=== PATIENT | male | born 1970 | race Hispanic/Latino ===

== ENCOUNTER 2021-10-05 11:57 | Inpatient (IN) | payer BC ==
--- OUTSIDE RECORDS SUMMARY | 2021-10-05 12:00 | XMS REPORT | Continuity of Care Document ---
:[address] [facility] t Address [address] [place] [address] Dr. Roberts [address] [place] [id number] Care Team Providers Name Role Phone GARO FOSTER Attending Clinician Unavailable Problems This patient has no known problems. Allergies, Adverse Reactions, Alerts This patient has no known allergies or adverse reactions. Medications This patient has no known medications. Procedures This patient has no known procedures. Encounters Start End Encounter Admission Attending Care Care Encounter Source Date/Time Date/Time Type Type Clinicians Facility Department ID 2021-05-12 2021-05-12 Outpatient [facility] [id number] [place] 00:00:00 00:00:00 GARO [address] 2021-05-12 2021-05-12 Outpatient [facility] [id number] [place] 00:00:00 00:00:00 GARO [address] 2020-10-23 2020-10-23 Outpatient [facility] [id number] [place] 00:00:00 00:00:00 GARO [address] 2020-01-30 2020-01-30 Outpatient [facility] [id number] [place] 00:00:00 00:00:00 GARO [address] Results This patient has no known results.
[2021-10-05 13:13] LABS: Absolute Lymphocytes (CBC) 2.2 K/uL (0.7-4.9); Hematocrit 47.4 % (39.6-49.0); Lymphocytes % 22.6 % (15.3-44.8); MPV 8.3 fL (7.6-11.3); RBC Red Blood Cell Count 5.68 M/uL (4.33-5.43)
[2021-10-05 13:15] LABS: Protime INR 1.19
[2021-10-05 13:31] LABS: ALT/SGPT 41 U/L (12-78); AST/SGOT 24 U/L (15-37); Albumin 3.5 g/dL (3.4-5.0); Alkaline Phosphatase 80 U/L (45-117); BUN Blood Urea Nitrogen 17 mg/dL (7-18); Bicarbonate 25 mmol/L (21-32); Bilirubin Direct 0.2 mg/dL (0-0.2); Bilirubin Total 0.6 mg/dL (0.2-1.0); Glucose Level 213 mg/dL (74-106); Magnesium 2.2 mg/dL (1.8-2.4); NT PRO-BNP 2681 pg/mL (<125); Potassium 4.6 mmol/L (3.5-5.1); Sodium Level 138 mmol/L (136-145); Troponin (Emerg Dept Use Only) < 0.02 ng/mL (0.0-0.045)
--- NOTE | 2021-10-05 14:05 | RAD REPORT ---
EXAM DESCRIPTION: RAD - Chest Single View - 10/05/2021 1:57 pm CLINICAL HISTORY: DYSPNEA Chest pain. COMPARISON: Chest Pa And Lat (2 Views) dated 08/25/2021; CHEST PA AND LAT 2 VIEW dated 06/16/2012 FINDINGS: Portable technique limits examination quality. The lungs are grossly clear. The heart is upper limit of normal in size. No displaced fractures. IMPRESSION: No acute intrathoracic process suspected.
--- NOTE | 2021-10-05 14:30 | RAD REPORT ---
EXAM DESCRIPTION: CT - Chest For Pe Angio - 10/05/2021 2:15 pm CLINICAL HISTORY: Chest pain. DYSPNEA COMPARISON: No comparisons TECHNIQUE: CT angiogram of the pulmonary arteries was performed with MIP. All CT scans are performed using dose optimization technique as appropriate and may include automated exposure control or mA/KV adjustment according to patient size. FINDINGS: No evidence of pulmonary thromboembolism. No acute aortic finding demonstrated. Mild interstitial pulmonary edema suspected. Small bilateral pleural effusions slightly larger on the right. No concerning bony finding. IMPRESSION: No evidence of pulmonary thromboembolism. Mild CHF/ volume overload pattern is noted.
--- NOTE | 2021-10-05 14:36 | ER ---
Nurse's Notes [facility] Name: Edison Cummins III Age: 51 yrs Sex: Male : 1970 Arrival Date: 10/05/2021 Time: 12:07 Bed 24 Private MD: Diagnosis: Acute pulmonary edema;Dyspnea Presentation: 10/05 12:48 Chief complaint: Patient states: Shortness of breath that started 1 month ago and has ww progressively gotten worse. Had a stress test at Dr. Heath's office and heart rate is elevated. Complaining of swelling in lower extremity and unable to sleep due to laying down. Coronavirus screen: Client denies travel out of the [place] in the last 14 days. Ebola Screen: Patient negative for fever greater than or equal to 101.5 degrees Fahrenheit, and additional compatible Ebola Virus Disease symptoms Patient denies exposure to infectious person. Patient denies travel to an Ebola-affected area in the 21 days before illness onset. Initial Sepsis Screen: Does the patient meet any 2 criteria? No. Patient's initial sepsis screen is negative. Does the patient have a suspected source of infection? No. Patient's initial sepsis screen is negative. Risk Assessment: Do you want to hurt yourself or someone else? Patient reports no desire to harm self or others. Onset of symptoms was September 04, 2021. 12:48 Method Of Arrival: Ambulatory ww 12:48 Acuity: VANDANA 3 ww Triage Assessment: 12:51 General: Appears well groomed, well developed, well nourished, Behavior is calm, ww cooperative, appropriate for age. Pain: Denies pain. EENT: No deficits noted. Neuro: No deficits noted. Level of Consciousness is awake, alert, obeys commands, Oriented to person, place, time, situation, Appropriate for age Speech is normal. Cardiovascular: Reports palpitations, shortness of breath, Capillary refill < 3 seconds Edema is 2+ to left midcalf, left ankle, left foot, right midcalf, right ankle and right foot. Respiratory: Reports shortness of breath cough that is Onset: The symptoms/episode began/occurred gradually, the patient has moderate shortness of breath. GI: No deficits noted. Reports swelling in abd. : No deficits noted. No signs and/or symptoms were reported regarding the genitourinary system. Derm: Skin is intact, is healthy with good turgor, Skin is pink, warm \\T\\ dry. Musculoskeletal: No deficits noted. No signs and/or symptoms reported regarding the musculoskeletal system. Historical: - Allergies: 12:51 No Known Allergies; ww - Home Meds: 12:51 allopurinol 300 mg Oral tab 1 tab once daily [Active]; gabapentin 100 mg oral cap 1 cap ww twice a day [Active]; Janumet XR 50-500 mg oral TM24 2 tabs once daily [Active]; Jardiance 25 mg oral tab 1 tab once daily [Active]; Sparta-3 oral cap [Active]; omeprazole 40 mg Oral cpDR 1 cap once daily [Active]; - PMHx: 12:51 Diabetes mellitus; ww - PSHx: 12:51 None; ww - Immunization history:: Client reports receiving the 2nd dose of the Covid vaccine, Pneumococcal vaccine is not up to date, Flu vaccine is not up to date. - Social history:: Smoking status: Patient denies any tobacco usage or history of. Screenin:56 Abuse screen: Denies threats or abuse. Denies injuries from another. Nutritional ww screening: No deficits noted. Tuberculosis screening: No symptoms or risk factors identified. Fall Risk None identified. Assessment: 14:03 Reassessment: Patient appears in no apparent distress at this time. No changes from ww previously documented assessment. Patient and/or family updated on plan of care and expected duration. Pain level reassessed. Patient is alert, oriented x 3, equal unlabored respirations, skin warm/dry/pink. 15:11 Reassessment: Patient appears in no apparent distress at this time. No changes from ww previously documented assessment. Patient and/or family updated on plan of care and expected duration. Pain level reassessed. Patient is alert, oriented x 3, equal unlabored respirations, skin warm/dry/pink. answered all questions and concerns with patient and spouse.. Vital Signs: 12:48 BP 100 / 73; Pulse 120; Resp 22; Temp 96.7; Pulse Ox 99% on R/A; Weight 87.09 kg; ww Height 5 ft. 7 in. (170.18 cm); Pain 0/10; 14:04 BP 100 / 79; Pulse 119; Resp 26; Pulse Ox 95% on R/A; ww 15:11 BP 109 / 96; Pulse 126; Resp 25; Pulse Ox 95% on R/A; ww 12:48 Body Mass Index 30.07 (87.09 kg, 170.18 cm) ww ED Course: 12:07 Patient arrived in ED. am2 12:51 Triage completed. ww 12:51 Arm band placed on right ankle. ww 12:52 Radha Mckeon FNP-C is [facility]. kb 12:52 Luis Garcia MD is Attending Physician. kb 12:56 Patient has correct armband on for positive identification. Notified Nurse Practitioner ww and/or Physician [employer] Stock Clerk of vital signs. 12:56 Initial lab(s) drawn, by ED staff, sent to lab. COVID swab sent to lab. Inserted saline ww lock: 18 gauge in right antecubital area, using aseptic technique. 13:04 COVID-19 SARS RT PCR (Document "Date of Onset" if Symptomatic) Sent. iw 13:05 Marii Mckeon, RN is Primary Nurse. ww 13:57 XRAY Chest (1 view) In Process Unspecified. EDMS 14:15 CT Chest For PE Angio In Process Unspecified. EDMS 14:35 Souleymane Robertson DO is Hospitalizing Provider. kb Administered Medications: 14:59 Drug: Lasix (furosemide) 40 mg Route: IVP; Site: right antecubital; ww Outcome: 14:36 Decision to Hospitalize by Provider. kb 20:37 Patient left the ED. lp1 Signatures: Dispatcher [employer] EDMS Radha Mckeon FNP-C FNP-Kristine Knowles RN RN Blossom Mack RN RN 1 Geena Gonzales [facility] Marii Mckeon RN YESSI
--- NOTE | 2021-10-05 14:37 | EDPHYS ---
Physician Documentation [facility] Name: Edison Cummins III Age: 51 yrs Sex: Male : 1970 Arrival Date: 10/05/2021 Time: 12:07 Bed 24 Private MD: ED Physician Luis Garcia HPI: 10/05 13:10 This 51 yrs old Male presents to ER via Ambulatory with complaints of kb Breathing Difficulty. 13:10 The patient has shortness of breath at rest. Onset: The symptoms/episode began/occurred kb 1 month(s) ago. Duration: The symptoms are continuous. The patient's shortness of breath is aggravated by exertion, light activity. Associated signs and symptoms: The patient has no apparent associated signs or symptoms. Severity of symptoms: At their worst the symptoms were moderate in the emergency department the symptoms are unchanged. The patient has not experienced similar symptoms in the past. The patient has not recently seen a physician. 13:10 Pt reports shortness of breath and swelling that has been getting worse since it kb started during . Historical: - Allergies: 12:51 No Known Allergies; ww - Home Meds: 12:51 allopurinol 300 mg Oral tab 1 tab once daily [Active]; gabapentin 100 mg oral cap 1 cap ww twice a day [Active]; Janumet XR 50-500 mg oral TM24 2 tabs once daily [Active]; Jardiance 25 mg oral tab 1 tab once daily [Active]; [place]-3 oral cap [Active]; omeprazole 40 mg Oral cpDR 1 cap once daily [Active]; - PMHx: 12:51 Diabetes mellitus; ww - PSHx: 12:51 None; ww - Immunization history:: Client reports receiving the 2nd dose of the Covid vaccine, Pneumococcal vaccine is not up to date, Flu vaccine is not up to date. - Social history:: Smoking status: Patient denies any tobacco usage or history of. ROS: 13:08 Constitutional: Negative for fever, chills, and weight loss. kb 13:08 Cardiovascular: Positive for edema, Negative for chest pain, orthopnea, palpitations, paroxysmal nocturnal dyspnea. 13:08 Respiratory: Positive for dyspnea on exertion, shortness of breath, Negative for cough, hemoptysis, orthopnea, pleurisy, sputum production, wheezing. 13:08 All other systems are negative. Exam: 13:09 Constitutional: This is a well developed, well nourished patient who is awake, alert, kb and in no acute distress. Head/Face: Normocephalic, atraumatic. ENT: Moist Mucous membranes Abdomen/GI: Soft, non-tender. No distention Skin: Warm, dry with normal turgor. Normal color. MS/ Extremity: Pulses equal, no cyanosis. Neurovascular intact. Full, normal range of motion. Neuro: Awake and alert, GCS 15, oriented to person, place, time, and situation. Moves all extremities. Normal gait. Psych: Awake, alert, with orientation to person, place and time. Behavior, mood, and affect are within normal limits. 13:09 Cardiovascular: Rate: tachycardic, Rhythm: regular, Pulses: no pulse deficits are appreciated, Edema: 2+ edema to level of left ankle and right ankle. 13:09 Respiratory: mild respiratory distress is noted, Respirations: labored breathing, that is mild, Breath sounds: decreased breath sounds, that are mild, are located in both bases. Vital Signs: 12:48 BP 100 / 73; Pulse 120; Resp 22; Temp 96.7; Pulse Ox 99% on R/A; Weight 87.09 kg; ww Height 5 ft. 7 in. (170.18 cm); Pain 0/10; 14:04 BP 100 / 79; Pulse 119; Resp 26; Pulse Ox 95% on R/A; ww 15:11 BP 109 / 96; Pulse 126; Resp 25; Pulse Ox 95% on R/A; ww 12:48 Body Mass Index 30.07 (87.09 kg, 170.18 cm) ww MDM: 12:52 Patient medically screened. kb 13:08 Data reviewed: vital signs, nurses notes. Data interpreted: Pulse oximetry: on room air kb is 99 %. Interpretation: normal. 14:32 Counseling: I had a detailed discussion with the patient and/or guardian regarding: the kb historical points, exam findings, and any diagnostic results supporting the discharge/admit diagnosis, lab results, radiology results, the need for further work-up and treatment in the hospital. 10/05 12:52 Order name: Basic Metabolic Panel; Complete Time: 13:32 kb 10/05 12:52 Order name: CBC with Diff; Complete Time: 13:19 kb 10/05 12:52 Order name: LFT's; Complete Time: 13:32 kb 10/05 12:52 Order name: Magnesium; Complete Time: 13:32 kb 10/05 12:52 Order name: NT PRO-BNP; Complete Time: 13:32 kb 10/05 12:52 Order name: PT-INR; Complete Time: 13:19 kb 10/05 12:52 Order name: Troponin (emerg Dept Use Only); Complete Time: 13:32 kb 10/05 13:03 Order name: COVID-19 SARS RT PCR (Document "Date of Onset" if Symptomatic); Complete iw Time: 14:24 10/05 15:00 Order name: Hemoglobin A1c EDMS 10/05 15:00 Order name: Hemoglobin A1c EDMS 10/05 17:47 Order name: Glucose, Ancillary Testing EDMS 10/05 19:27 Order name: Creatine Phosphokinase EDMS 10/05 19:27 Order name: CKMB Creatine Kinase MB EDMS 10/05 12:52 Order name: XRAY Chest (1 view); Complete Time: 14:07 kb 10/05 12:52 Order name: EKG; Complete Time: 12:52 kb 10/05 12:52 Order name: Cardiac monitoring; Complete Time: 13:05 kb 10/05 12:52 Order name: EKG - Nurse/Tech; Complete Time: 13:43 kb 10/05 12:52 Order name: IV Saline Lock; Complete Time: 13:04 kb 10/05 12:52 Order name: Labs collected and sent; Complete Time: 13:04 kb 10/05 12:52 Order name: O2 Per Protocol; Complete Time: 13:05 kb 10/05 12:52 Order name: O2 Sat Monitoring; Complete Time: 13:05 kb 10/05 13:51 Order name: CT Chest For PE Angio; Complete Time: 14:30 kb 10/05 15:01 Order name: Chest Single View EDMS 10/05 15:01 Order name: Chest Single View EDMS 10/05 19:27 Order name: Troponin I EDMS 10/05 20:25 Order name: Glucose, Ancillary Testing EDMS Administered Medications: 14:59 Drug: Lasix (furosemide) 40 mg Route: IVP; Site: right antecubital; ww Disposition: 10/06 08:48 Co-signature as Attending Physician, Luis Garcia MD I agree with the assessment and rosalinda plan of care. Disposition Summary: 10/05/21 14:36 Hospitalization Ordered Hospitalization Status: Observation kb Provider: Souleymane Robertson Condition: Stable kb Problem: new kb Symptoms: are unchanged kb Bed/Room Type: Standard kb Location: Telemetry/MedSurg (Inpatient)(10/05/21 19:47) mw Room Assignment: 212(10/05/21 19:47) Diagnosis - Acute pulmonary edema kb - Dyspnea kb Forms: - Medication Reconciliation Form kb - SBAR form kb Signatures: Dispatcher [employer] EDMS Radha Mckeon FNP-Yasmin Cordova RN RN mw Anderson, Corey, MD MD cha Williams, Irene, RN YESSI Marii Mckeon RN RN ww Corrections: (The following items were deleted from the chart) 10/05 16:16 14:36 Telemetry/MedSurg (observation) kb iw 16:16 14:36 kb iw 19:47 16:16 [facility] ER HOLD iw mw 19:47 16:16 ERHOLD- iw mw
[2021-10-05] MEDS ORDERED: FUROSEMIDE 40 MG/4 ML VIAL ONE (14:45)
--- NOTE | 2021-10-05 15:06 | P.HP ---
Certification for Inpatient Patient admitted to: Observation With expected LOS: <2 Midnights Patient will require the following post-hospital care: None Practitioner: I am a practitioner with admitting privileges, knowledge of patient current condition, hospital course, and medical plan of care. Services: Services provided to patient in accordance with Admission requirements found in Title 42 Section 412.3 of the Code of Federal Regulations Patient History Date of Service: 10/05/21 Primary Care Provider: Dr. Royal; Cardiology-Dr. Randle Reason for admission: SOB History of Present Illness: 51-year-old male with history of diabetes, gout, GERD and diabetic neuropathy. Patient presented to the emergency room with increasing shortness of breath. Patient reports increasing shortness of breath over the past month. Shortness of breath worse with exertion. He has noted increasing edema to the lower extremities as well. He does drink water excessively. Patient seen by cardiology recently. He had a cardiac stress test done this morning. It is reported that his cardiac stress test showed ejection fraction of 19%. He came to the ER for further evaluation. In the ER patient evaluated. CT scan revealed CHF pattern. White count 9.6, hemoglobin 15. Platelet count 327. Sodium 138, potassium 4.6. Creatinine 1.24 with a GFR of 61. Troponin negative. BNP elevated. Patient given IV Lasix in the emergency room. Patient admitted for further evaluation and treatment. Home medications list reviewed: Yes - Past Medical/Surgical History Diabetic: Yes -: Diabetes mellitus type 2 [id number] -: GERD -: Gout -: Diabetic neuropathy Past Surgical History: Patient denies surgical history Psychosocial/ Personal History: Patient is . 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 - Family History Mother -: Heart disease, Hypertension, Other (see notes) (CHF, CABG x4 vessel) - Social History Smoking Status: Never smoker Alcohol use: No CD- Drugs: No Caffeine use: Yes Place of Residence: Home Review of Systems General: As per HPI Eyes: Unremarkable ENT: Unremarkable Respiratory: Shortness of Breath, SOB with Excertion, As per HPI Cardiovascular: Edema, As per HPI Gastrointestinal: Unremarkable Genitourinary: Unremarkable Musculoskeletal: Pedal edema, As per HPI Integumentary: Unremarkable Neurological: Unremarkable Lymphatics: Unremarkable Physical Examination - Studies Laboratory Data (last 24 hrs) 10/05/21 13:00: PT 13.7 H, INR 1.19 10/05/21 13:00: WBC 9.60, Hgb 15.3, Hct 47.4, Plt Count 327 10/05/21 13:00: Sodium 138, Potassium 4.6, BUN 17, Creatinine 1.24, Glucose 213 H, Magnesium 2.2, Total Bilirubin 0.6, AST 24, ALT 41, Alkaline Phosphatase 80 Assessment and Plan - Plan COVID: Negative Chest x-ray: COMPARISON: Chest Pa And Lat (2 Views) dated 08/25/2021; CHEST PA AND LAT 2 VIEW dated 06/16/2012 FINDINGS: Portable technique limits examination quality. The lungs are grossly clear. The heart is upper limit of normal in size. No displaced fractures. IMPRESSION: No acute intrathoracic process suspected. CT scan chest: FINDINGS: No evidence of pulmonary thromboembolism. No acute aortic finding demonstrated. Mild interstitial pulmonary edema suspected. Small bilateral pleural effusions slightly larger on the right. No concerning bony finding. IMPRESSION: No evidence of pulmonary thromboembolism. Mild CHF/ volume overload pattern is noted. Physical Exam: GENERAL: The patient is a well-developed, well-nourished, in no apparent distress. Alert and oriented x3. VITAL SIGNS: Reviewed HEENT: Head is normocephalic and atraumatic. Extraocular muscles are intact. Pupils are equal, round, and reactive to light and accommodation. Nares appeared normal. Mouth is well hydrated and without lesions. Mucous membranes are moist. NECK: Supple. No carotid bruits. No lymphadenopathy or thyromegaly. LUNGS: Decreased bilateral. Currently on room air. HEART: Regular rate and rhythm, no appreciable gallops, rubs, murmurs or extra heart sounds ABDOMEN: Soft, nontender, and nondistended. Positive bowel sounds. No hepatosplenomegaly was noted. EXTREMITIES: Pitting edema to the lower extremities bilateral NEUROLOGIC: The patient is oriented to person, place and time. Strength and sensation are grossly intact. Face is symmetric. SKIN: 1-2+ pitting edema to the lower extremities bilateral Impression: Shortness of breath, edema to the lower extremities secondary to acute on chronic systolic CHF Hypertension Diabetes mellitus type 2 GERD Diabetic neuropathy Gout Plan: Shortness of breath, edema to the lower extremities secondary to acute on chronic systolic CHF: Patient will be admitted for further evaluation and treatment. Patient had cardiac stress test at cardiology office today. It was noted that his ejection fraction was 19%. Patient had abnormal stress test. We will start IV Lasix 40 mg 3 times a day. Will provide carvedilol. Consider Entresto at discharge. Will obtain echocardiogram to further evaluate. Await further recommendations from cardiology. Recheck chest x-ray tomorrow. Tyson n sats above 93%. Monitor strict input output. Monitor daily weight. Teach on 1506/day fluid restriction and low-salt diet. Patient may require further evaluation including cardiac stress test and/or LifeVest. Await recommendations from cardiology. Hypertension: Mild tachycardia noted. Will start carvedilol. Diabetes mellitus type 2: Hold Metformin, Jardiance. Continue Accu-Cheks and sliding scale. Will check hemoglobin A1c. GERD: Continue Protonix 40 mg daily Diabetic neuropathy: Hold gabapentin. Gout: Continue allopurinol 300 mg daily Code Status: Full Code DVT prophylaxis: Lovenox Advanced Care Planning-30 minutes: Home at discharge Discharge Plan: Home Plan to discharge in: 48 Hours - Advance Directives Does patient have a Living Will: No Does patient have a Durable POA for Healthcare: No - Code Status/Comfort Care Code Status Assessed: Yes (Patient is full code) Time Spent Managing Pts Care (In Minutes): 55
[2021-10-05 16:07] VITALS: BMI 31.1
[2021-10-05] MEDS ORDERED: ACETAMINOPHEN 500 MG TAB PO PRN (17:23)
[2021-10-05] MEDS ORDERED: ONDANSETRON 4 MG/2 ML VIAL IV PRN (17:23)
[2021-10-05] MEDS: INSULIN -REGULAR HUMAN 50 UNIT/0.5 ML ML SQ SCH ×2 (17:35→20:29)
[2021-10-05] MEDS ORDERED: carvediloL 6.25 MG TAB ONE (17:39)
[2021-10-05] MEDS: carvediloL 3.125 MG TAB PO SCH (17:56)
[2021-10-05] MEDS: ENOXAPARIN 40 MG/0.4 ML SQ SCH (17:57)
[2021-10-05] MEDS ORDERED: ENOXAPARIN 40 MG/0.4 ML SQ ONE (18:00)
[2021-10-05] MEDS ORDERED: FUROSEMIDE 40 MG/4 ML VIAL IV SCH (18:00)
[2021-10-05 19:27] LABS: CKMB Creatine Kinase MB 1.5 ng/mL (1.0-3.6); Creatine Phosphokinase 115 U/L (39-308); Troponin I < 0.02 ng/mL (0.0-0.045)
[2021-10-06] MEDS ORDERED: FUROSEMIDE 40 MG/4 ML VIAL IV SCH (01:00)
[2021-10-06 01:23] LABS: CKMB Creatine Kinase MB 1.4 ng/mL (1.0-3.6); Creatine Phosphokinase 103 U/L (39-308); Troponin I < 0.02 ng/mL (0.0-0.045)
[2021-10-06] MEDS: carvediloL 3.125 MG TAB PO SCH ×3 (05:21→17:12)
--- NOTE | 2021-10-06 06:04 | P.PN ---
Subjective Date of Service: 10/06/21 Primary Care Provider: Dr. Royal; Cardiology-Dr. Randle Chief Complaint: SOB Subjective: Improving (Patient was able to diurese up to 2 L last night) Physical Examination - Vital Signs Temperature: 97.9 F Blood Pressure: 108/73 Pulse: 108 Respirations: 18 Pulse Ox (%): 94 - Studies Laboratory Data (last 24 hrs) 10/05/21 13:00: PT 13.7 H, INR 1.19 10/05/21 13:00: WBC 9.60, Hgb 15.3, Hct 47.4, Plt Count 327 10/05/21 13:00: Sodium 138, Potassium 4.6, BUN 17, Creatinine 1.24, Glucose 213 H, Magnesium 2.2, Total Bilirubin 0.6, AST 24, ALT 41, Alkaline Phosphatase 80 Assessment & Plan Discharge Plan: Home Plan to discharge in: 48 Hours Physician Review Additional Text: COVID: Negative Chest x-ray: COMPARISON: Chest Pa And Lat (2 Views) dated 08/25/2021; CHEST PA AND LAT 2 VIEW dated 06/16/2012 FINDINGS: Portable technique limits examination quality. The lungs are grossly clear. The heart is upper limit of normal in size. No displaced fractures. IMPRESSION: No acute intrathoracic process suspected. CT scan chest: FINDINGS: No evidence of pulmonary thromboembolism. No acute aortic finding demonstrated. Mild interstitial pulmonary edema suspected. Small bilateral pleural effusions slightly larger on the right. No concerning bony finding. IMPRESSION: No evidence of pulmonary thromboembolism. Mild CHF/ volume overload pattern is noted. Follow up CXR 10/06/2021: COMPARISON: October 05, 2021 FINDINGS: Small bilateral pleural effusions. Mild bibasilar atelectasis. Upper lobes appear clear. Heart is borderline enlarged Physical Exam: GENERAL: The patient is a well-developed, well-nourished, in no apparent distress. Alert and oriented x3. VITAL SIGNS: Reviewed HEENT: Neck supple LUNGS: Better air movement bilateral l. Currently on room air. HEART: Regular rate and rhythm, no appreciable gallops, rubs, murmurs or extra heart sounds ABDOMEN: Soft, nontender, and nondistended. Positive bowel sounds. No hepatosplenomegaly was noted. EXTREMITIES: Edema to the lower extremities improved l NEUROLOGIC: The patient is oriented to person, place and time. Strength and sensation are grossly intact. Face is symmetric. SKIN: Edema to the lower extremity improved Impression: Shortness of breath, edema to the lower extremities secondary to acute on chronic systolic CHF Hypertension Diabetes mellitus type 2 GERD Diabetic neuropathy Gout Plan: Shortness of breath, edema to the lower extremities secondary to acute on chronic systolic CHF: Patient improved. Continue with Lasix but will change to 40 mg 1 pill twice daily. Continue 1500 cc/day fluid restriction. Continue aspirin, carvedilol, lisinopril. Spoke with cardiology. Cardiology plans for heart catheterization tomorrow to further evaluate his condition. Echocardiogram to be obtained. 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 Hypertension: Continue carvedilol and lisinopril. Parameters in place. Diabetes mellitus type 2: Continue to hold Metformin, Jardiance. Continue Accu- Cheks and sliding scale. Will check hemoglobin A1c. GERD: Continue Protonix 40 mg daily Diabetic neuropathy: Continue to hold gabapentin. Gout: Continue allopurinol 300 mg daily Code Status: Full Code DVT prophylaxis: Lovenox Advanced Care Planning-30 minutes: Discharge home likely in 1 to 2 days. Time Spent Managing Pts Care (In Minutes): 55
[2021-10-06 06:13] LABS: Magnesium 2.4 mg/dL (1.8-2.4); Potassium 4.6 mmol/L (3.5-5.1)
[2021-10-06 06:19] LABS: Thyroid Stimulating Hormone 2.18 uIU/mL (0.360-3.740)
[2021-10-06] MEDS: INSULIN -REGULAR HUMAN 50 UNIT/0.5 ML ML SQ SCH ×4 (07:30→22:06)
--- NOTE | 2021-10-06 08:11 | RAD REPORT ---
EXAM DESCRIPTION: Tiffany Single View10/06/2021 6:36 am CLINICAL HISTORY: Shortness of breath COMPARISON: October 05, 2021 FINDINGS: Small bilateral pleural effusions. Mild bibasilar atelectasis. Upper lobes appear clear. Heart is borderline enlarged
[2021-10-06] MEDS: VITAMIN D 1000 UNIT TAB PO SCH (08:32)
[2021-10-06] MEDS: allopurinoL 300 MG TAB PO SCH (08:32)
[2021-10-06] MEDS: ASPIRIN EC 81 MG TAB PO SCH (08:32)
[2021-10-06] MEDS: PANTOPRAZOLE 40MG TABLET PO SCH (08:33)
[2021-10-06] MEDS: FUROSEMIDE 40 MG/4 ML VIAL IV SCH ×2 (08:33→22:04)
[2021-10-06] MEDS: ENOXAPARIN 40 MG/0.4 ML SQ SCH (08:34)
[2021-10-06] MEDS: lisinopriL 5 MG TAB PO SCH (08:35)
--- NOTE | 2021-10-06 11:18 | EKG ---
Test Date: 2021-10-05 Test Time: 13:07:11 Preparation Supervisor Freezing: JESSICA, MEASUREMENT RESULTS: Intervals: Rate: 125 WV: 144 QRSD: 96 QT: 336 QTc: 484 [place]: P: 33 WV: 144 QRS: -50 T: 67 INTERPRETIVE STATEMENTS: Sinus tachycardia Left anterior fascicular block Septal infarct, age undetermined Possible Lateral infarct, age undetermined Abnormal ECG Compared to ECG 06/16/2012 10:41:12 Left anterior fascicular block now present Myocardial infarct finding now present Sinus rhythm no longer present Electronically Signed On 10-06-21 11:14:21 WIND UP OPERATOR by Lev Randle
--- NOTE | 2021-10-06 11:24 | ECHO ---
HEIGHT: 5 ft 7 in WEIGHT: 198 lb 12.8 oz DATE OF STUDY: 10/06/[address]: Souleymane Robertson DO 2-DIMENSIONAL: YES M.MODE: YES DOPPLER: YES COLOR FLOW: YES TDS: PORTABLE: DEFINITY: BUBBLE STUDY: DIAGNOSIS: CONGESTIVE HEART FAILURE CARDIAC HISTORY: CATHERIZATION: SURGERY: PROSTHETIC VALVE: PACEMAKER: MEASUREMENTS (cm) DIASTOLIC (NORMALS) SYSTOLIC (NORMALS) IVSd 1.1 (0.6-1.2) LA Diam 4.0 (1.9-4.0) LVEF 22% LVIDd 5.9 (3.5-5.7) LVIDs 5.3 (2.0-3.5) %FS 10% LVPWd 1.1 (0.6-1.2) Ao Diam 3.2 (2.0-3.7) 2 DIMENSIONAL ASSESSMENT: RIGHT ATRIUM: NORMAL LEFT ATRIUM: NORMAL RIGHT VENTRICLE: NORMAL LEFT VENTRICLE: DILATED TRICUSPID VALVE: NORMAL MITRAL VALVE: NORMAL PULMONIC VALVE: NORMAL AORTIC VALVE: NORMAL PERICARDIAL EFFUSION: NONE AORTIC ROOT: NORMAL LEFT VENTRICULAR WALL MOTION: SEVEREGLOBAL HYPOKINESIS DOPPLER/COLOR FLOW: MILD TRICUSPID REGUGITATION COMMENTS: MILD TRICUSPID REGURGITAITON. SEVERE GLOBAL HYPOKINESIS. EJECTION FRACTION 22%. DILATED LEFT VENTRICLE. TECHNOLOGIST: TALON GARZA
--- NOTE | 2021-10-06 19:41 | PN ---
Date of Progress Note: 10/06/2021 Mr. Cummins was admitted with acute systolic congestive heart failure, severely reduced ejection fract ion of 19% and abnormal stress test. Overnight, he diuresed significantly. He is feeling better. H e is able to lay flat. He is on lisinopril, carvedilol, IV Lasix. He is on aspirin. We will plan a heart catheterization on 10/07/2021 to define his coronary anatomy. Continue present regimen for no w. The patient understands the risk and the benefits of the procedure and he agreed to proceed. NEYDA/KOJO Voice ID: [id number] Report ID: [id number]
[2021-10-06] MEDS: ATORVASTATIN 10 MG TAB PO SCH (22:06)
[2021-10-07 04:39] LABS: Magnesium 2.3 mg/dL (1.8-2.4)
[2021-10-07] MEDS: carvediloL 3.125 MG TAB PO SCH (05:49)
--- NOTE | 2021-10-07 06:10 | P.PN ---
Subjective Date of Service: 10/07/21 Primary Care Provider: Dr. Royal; Cardiology-Dr. Randle Chief Complaint: SOB Subjective: Other (Patient went to heart cath.) Physical Examination - Vital Signs Temperature: 97 F Blood Pressure: 95/70 Pulse: 70 Respirations: 16 Pulse Ox (%): 94 - Studies Laboratory Data (last 24 hrs) 10/06/21 05:28: Sodium 140, Potassium 4.6, BUN 19 H, Creatinine 1.10, Glucose 153 H, Magnesium 2.4, Triglycerides 121, Cholesterol 138, HDL Cholesterol 29 L, Cholesterol/HDL Ratio 4.76 Assessment & Plan Discharge Plan: Home Plan to discharge in: 24 Hours Physician Review Additional Text: COVID: Negative Chest x-ray: COMPARISON: Chest Pa And Lat (2 Views) dated 08/25/2021; CHEST PA AND LAT 2 VIEW dated 06/16/2012 FINDINGS: Portable technique limits examination quality. The lungs are grossly clear. The heart is upper limit of normal in size. No displaced fractures. IMPRESSION: No acute intrathoracic process suspected. CT scan chest: FINDINGS: No evidence of pulmonary thromboembolism. No acute aortic finding demonstrated. Mild interstitial pulmonary edema suspected. Small bilateral pleural effusions slightly larger on the right. No concerning bony finding. IMPRESSION: No evidence of pulmonary thromboembolism. Mild CHF/ volume overload pattern is noted. Follow up CXR 10/06/2021: COMPARISON: October 05, 2021 FINDINGS: Small bilateral pleural effusions. Mild bibasilar atelectasis. Upper lobes appear clear. Heart is borderline enlarged ECHO: MEASUREMENTS (cm) DIASTOLIC (NORMALS) SYSTOLIC (NORMALS) IVSd 1.1 (0.6-1.2) LA Diam 4.0 (1.9-4.0) LVEF 22% LVIDd 5.9 (3.5-5.7) LVIDs 5.3 (2.0-3.5) %FS 10% LVPWd 1.1 (0.6-1.2) Ao Diam 3.2 (2.0-3.7) 2 DIMENSIONAL ASSESSMENT: RIGHT ATRIUM: NORMAL LEFT ATRIUM: NORMAL RIGHT VENTRICLE: NORMAL LEFT VENTRICLE: DILATED TRICUSPID VALVE: NORMAL MITRAL VALVE: NORMAL PULMONIC VALVE: NORMAL AORTIC VALVE: NORMAL PERICARDIAL EFFUSION: NONE AORTIC ROOT: NORMAL LEFT VENTRICULAR WALL MOTION: SEVEREGLOBAL HYPOKINESIS DOPPLER/COLOR FLOW: MILD TRICUSPID REGUGITATION COMMENTS: MILD TRICUSPID REGURGITAITON. SEVERE GLOBAL HYPOKINESIS. EJECTION FRACTION 22%. DILATED LEFT VENTRICLE. Heart cath: Date of Procedure: 10/07/2021 Surgeon: Lev Randle MD Database Engineer: Hien Cummins. After the Angio-Seal, the patient will be at bedrest for 2 hours. He will go home later on tonight. The case was discussed with Dr. Robertson. He should go home on aspirin, Plavix, statin, carvedilol 6.25 mg b.i.d., lisinopril low-dose, Lasix low-dose, and I will see him in the office. Hopefully, followup echocardiogram will be done in the next month to see if his ejection fraction improved. His EF yesterday was 22%. I believe his ejection fraction does not improve in 90 days, then we will proceed with a defibrillator. Admitted to Dr. Robertson from 10/05/2021 with non-STEMI, abnormal stress test, congestive heart failure. Brought to the cathode ray tube assembler today as an inpatient. Procedures Performed: In the cathode ray tube assembler, he underwent left heart catheterization, selective coronary arteriogram, primary stent of the distal circumflex. Indication: Coronary artery disease, CHF, positive stress test, non-STEMI. Mr. Cummins is 51, was admitted with the above problem on 10/05/2021. Procedure In Detail: His LAD was normal. Left main was normal. His RCA was normal, it was codominant. Circumflex was very large with a 70% and sequential 99% distal circumflex. We decided to intervene. An XB3.5 side-hole guide was used, 6-Urdu as a guide. We used a Chester wire 0.014 extra length to cross the lesion successfully. He had 2 stents were placed. Both of them were 2.5 x 16, overlapped in the distal circumflex with excellent result and 0% residual. There were no complications. Blood Loss: 5 mL. Anesthesia: Total conscious sedation was 45 minutes. Physical Exam: GENERAL: The patient is a well-developed, well-nourished, in no apparent distress. Alert and oriented x3. VITAL SIGNS: Reviewed HEENT: Neck supple LUNGS: Better air movement bilateral l. Currently on room air. HEART: Regular rate and rhythm, no appreciable gallops, rubs, murmurs or extra heart sounds ABDOMEN: Soft, nontender, and nondistended. Positive bowel sounds. No hepatosplenomegaly was noted. EXTREMITIES: Edema to the lower extremities improved l NEUROLOGIC: The patient is oriented to person, place and time. Strength and sensation are grossly intact. Face is symmetric. SKIN: Edema to the lower extremity improved Impression: Shortness of breath, edema to the lower extremities secondary to acute on chronic systolic CHF with EF of 22% status post heart catheterization showing stenosis to the circumflex status post 2 successful stents placed in the distal circumflex Hypertension Diabetes mellitus type 2 GERD Diabetic neuropathy Gout Plan: Shortness of breath, edema to the lower extremities secondary to acute on chr onic systolic CHF with EF of 22% status post heart catheterization showing stenosis to the circumflex status post 2 successful stents placed in the distal circumflex: Spoke with cardiology at length. Patient had stents placed to the circumflex. LAD and RCA appeared normal. Patient has done well with diuresis. Patient can be discharged later today after 4 PM as recommended by cardiology. At discharge patient will continue with the 1500 cc/day fluid restriction and low-salt diet. Patient will continue with Lasix 40 mg 1 pill twice daily. Patient will also continue with aspirin 81 mg daily, Plavix 75 mg daily, Lipitor 10 mg daily, carvedilol 6.25 mg 1 pill twice daily, and lisinopril 2.5 mg daily. Patient will need follow-up with cardiology within 1 week. Education on CHF and CAD provided. Hypertension: Carvedilol increased. Continue with carvedilol and lisinopril at discharge. Diabetes mellitus type 2: Continue to hold Metformin for at least 48 hours after heart catheterization. Patient will need to continue with his home medications at discharge. Hemoglobin A1c 8.3. Continue to monitor and adjust medication. Recommend to recheck labBMP to monitor renal function on his current medications. GERD: Continue Protonix 40 mg daily Diabetic neuropathy: Continue to hold gabapentin. Continue at discharge Gout: Continue allopurinol 300 mg daily Code Status: Full Code DVT prophylaxis: Lovenox Advanced Care Planning-30 minutes: Discharge home likely in 1 to 2 days. Time Spent Managing Pts Care (In Minutes): 55
[2021-10-07] MEDS: ASPIRIN EC 81 MG TAB PO SCH (06:55)
[2021-10-07] MEDS ORDERED: HEPA 1000U/500MLS 1,000 UNIT/500 ML BAG IV ONE (06:55)
[2021-10-07] MEDS ORDERED: LIDOCAINE 1% 20 ML MDV ONE (06:55)
[2021-10-07] MEDS ORDERED: MIDAZOLAM HCL 2 MG/2 ML INJ ONE ×2 (07:13→07:35)
[2021-10-07] MEDS ORDERED: FENTANYL CITR 100 MCG/2 ML ONE (07:14)
[2021-10-07] MEDS ORDERED: ATROPINE SULF 1 MG/10 ML SYR IV ONE (07:14)
[2021-10-07] MEDS ORDERED: NA CHLORIDE 0.9% 500 ML ONE (07:14)
[2021-10-07] MEDS ORDERED: NA CHLORIDE 0.9% 50 ML ONE (07:15)
[2021-10-07] MEDS: PANTOPRAZOLE 40MG TABLET PO SCH (07:30)
[2021-10-07] MEDS: INSULIN -REGULAR HUMAN 50 UNIT/0.5 ML ML SQ SCH ×4 (07:30→22:03)
[2021-10-07] MEDS ORDERED: PRASUGREL (EFFIENT) 10 MG TAB ONE (08:03)
[2021-10-07] MEDS: FUROSEMIDE 40 MG/4 ML VIAL IV SCH ×3 (08:11→22:02)
[2021-10-07] MEDS: allopurinoL 300 MG TAB PO SCH (08:12)
[2021-10-07] MEDS: lisinopriL 5 MG TAB PO SCH (08:12)
[2021-10-07] MEDS: ENOXAPARIN 40 MG/0.4 ML SQ SCH (08:12)
[2021-10-07] MEDS: VITAMIN D 1000 UNIT TAB PO SCH (08:12)
--- NOTE | 2021-10-07 09:27 | OP ---
Date of Procedure: 10/07/2021 Surgeon: Lev Randle MD Labor Training Manager: Hienmario Cummins. After the Angio-Seal, the patient will be at bedrest for 2 hours. He will go home later on tonight. The case was discussed with Dr. Robertson. He should go home on aspirin, Plavix, statin, carvedilol 6. 25 mg b.i.d., lisinopril low-dose, Lasix low-dose, and I will see him in the office. Hopefully, foll owup echocardiogram will be done in the next month to see if his ejection fraction improved. His EF yesterday was 22%. I believe his ejection fraction does not improve in 90 days, then we will proceed with a defibrillator. Admitted to Dr. Robertson from 10/05/2021 with non-STEMI, abnormal stress test, congestive heart failure . Brought to the manager cardiac cath today as an inpatient. Procedures Performed: In the manager cardiac cath, he underwent left heart catheterization, selective coronary a rteriogram, primary stent of the distal circumflex. Indication: Coronary artery disease, CHF, positive stress test, non-STEMI. Mr. Cummins is 51, was ad mitted with the above problem on 10/05/2021. Procedure In Detail: On 10/07/2021, he was brought to the manager cardiac cath, prepped and draped in the routin e sterile fashion. Given Versed and fentanyl for sedation. A 6-Greek sheath introduced in the [facility] common femoral artery successfully. Angiography there was normal. Angio-Seal was used to close th e case. A 6-Greek sheath was introduced. 6-Greek catheters were introduced to cannulate the left main and right main. His LAD was normal. Left main was normal. His RCA was normal, it was codomina nt. Circumflex was very large with a 70% and sequential 99% distal circumflex. We decided to interv bety. An XB3.5 side-hole guide was used, 6-Greek as a guide. We used a Sullivan wire 0.014 extra janice th to cross the lesion successfully. He had 2 stents were placed. Both of them were 2.5 x 16, overl apped in the distal circumflex with excellent result and 0% residual. There were no complications. Blood Loss: 5 mL. Anesthesia: Total conscious sedation was 45 minutes. The patient received Angiomax during the procedure, aspirin, and Effient 60 mg. Postoperative Diagnosis: Successful primary stent of the distal circumflex. We will continue medica l therapy. NEYDA/KOJO Voice ID: [id number] Report ID: [id number]
[2021-10-07] MEDS ORDERED: ALPRAZOLAM 0.5 MG TABLET PO PRN (10:46)
--- NOTE | 2021-10-07 10:51 | CON ---
Date of Consultation: 10/05/[address] Robertson on 10/05/2021. I saw the patient on 10/05/2021. Reason For Consultation: Congestive heart failure and abnormal stress test. History Of Present Illness: Mr. Cummins is 51. History of diabetes, gastroesophageal reflux disease, gout, and neuropathy. Had been seen in the office for shortness of breath. Stress test showed ejec tion fraction of 19% with significant perfusion defect in multiple areas. He was supposed to come se e me after the stress test; however, he got admitted to the hospital with congestive heart failure, P ND, orthopnea, pedal edema. No palpitation. No syncope. No chest pain, nausea, vomiting, or diapho resis. He denied any fever or chills. Past Medical History: As stated above. Allergies: NONE. Review of Systems: Negative. Social History: Negative. Family History: Positive for diabetes and congestive heart failure. Medications: At home include allopurinol, Neurontin, Janumet, and Prilosec. Physical Examination: General: When I saw him; he had significant PND, orthopnea, shortness of breath. Vital Signs: Negative. He was afebrile. He was in sinus rhythm. HEENT: Negative. Neck: Supple without any bruit, lymphadenopathy, JVD. Chest: Reveals rales both the bases. Cardiac: Revealed tachycardia with S3 gallops. Abdomen: Benign. Extremities: Revealed trace edema. Diagnostic Data: Chest x-ray showed no acute process; however, the CT showed interstitial edema. EK G was nonspecific. The rest of the blood work was unremarkable. Impression And Plan: 1.Acute systolic congestive heart failure. 2.Abnormal stress test. 3.Diabetes. 4.Gout. 5.Neuropathy. 6.Gastroesophageal reflux disease. Mr. Cummins needs to be diuresed with IV Lasix, needs to be start ed on carvedilol and lisinopril. We will watch his electrolytes and creatinine. We will plan for le ft heart catheterization once he is able to lay flat. The case was discussed with Dr. Robertson. The p atient understands the risk and the benefits of the procedure and he agrees to proceed. NB/MODL Voice ID: [id number] Report ID: [id number]
--- NOTE | 2021-10-07 10:59 | P.DS ---
Admission Date: 10/06/21 Discharge Date: 10/08/21 Primary Care Provider: Dr. Royal; Cardiology-Dr. Randle Disposition: ROUTINE DISCHARGE Discharge Condition: GOOD Reason for Admission: SOB Consultations: Cardiology-Dr. Randle Procedures: COVID: Negative Chest x-ray: COMPARISON: Chest Pa And Lat (2 Views) dated 08/25/2021; CHEST PA AND LAT 2 VIEW dated 06/16/2012 FINDINGS: Portable technique limits examination quality. The lungs are grossly clear. The heart is upper limit of normal in size. No displaced fractures. IMPRESSION: No acute intrathoracic process suspected. CT scan chest: FINDINGS: No evidence of pulmonary thromboembolism. No acute aortic finding demonstrated. Mild interstitial pulmonary edema suspected. Small bilateral pleural effusions slightly larger on the right. No concerning bony finding. IMPRESSION: No evidence of pulmonary thromboembolism. Mild CHF/ volume overload pattern is noted. Follow up CXR 10/06/2021: COMPARISON: October 05, 2021 FINDINGS: Small bilateral pleural effusions. Mild bibasilar atelectasis. Upper lobes appear clear. Heart is borderline enlarged ECHO: MEASUREMENTS (cm) DIASTOLIC (NORMALS) SYSTOLIC (NORMALS) IVSd 1.1 (0.6-1.2) LA Diam 4.0 (1.9-4.0) LVEF 22% LVIDd 5.9 (3.5-5.7) LVIDs 5.3 (2.0-3.5) %FS 10% LVPWd 1.1 (0.6-1.2) Ao Diam 3.2 (2.0-3.7) 2 DIMENSIONAL ASSESSMENT: RIGHT ATRIUM: NORMAL LEFT ATRIUM: NORMAL RIGHT VENTRICLE: NORMAL LEFT VENTRICLE: DILATED TRICUSPID VALVE: NORMAL MITRAL VALVE: NORMAL PULMONIC VALVE: NORMAL AORTIC VALVE: NORMAL PERICARDIAL EFFUSION: NONE AORTIC ROOT: NORMAL LEFT VENTRICULAR WALL MOTION: SEVEREGLOBAL HYPOKINESIS DOPPLER/COLOR FLOW: MILD TRICUSPID REGUGITATION COMMENTS: MILD TRICUSPID REGURGITAITON. SEVERE GLOBAL HYPOKINESIS. EJECTION FRACTION 22%. DILATED LEFT VENTRICLE. Heart cath: Date of Procedure: 10/07/2021 Surgeon: Lev Randle MD Coder: Hien Cummins. After the Angio-Seal, the patient will be at bedrest for 2 hours. He will go h ome later on tonight. The case was discussed with Dr. Robertson. He should go home on aspirin, Plavix, statin, carvedilol 6.25 mg b.i.d., lisinopril low-dose, Lasix low-dose, and I will see him in the office. Hopefully, followup echocardiogram will be done in the next month to see if his ejection fraction improved. His EF yesterday was 22%. I believe his ejection fraction does not improve in 90 days, then we will proceed with a defibrillator. Admitted to Dr. Robertson from 10/05/2021 with non-STEMI, abnormal stress test, congestive heart failure. Brought to the home performance laborer today as an inpatient. Procedures Performed: In the home performance laborer, he underwent left heart catheterization, selective coronary arteriogram, primary stent of the distal circumflex. Indication: Coronary artery disease, CHF, positive stress test, non-STEMI. Mr. Cummins is 51, was admitted with the above problem on 10/05/2021. Procedure In Detail: His LAD was normal. Left main was normal. His RCA was normal, it was codominant. Circumflex was very large with a 70% and sequential 99% distal circumflex. We decided to intervene. An XB3.5 side-hole guide was used, 6-[place] as a guide. We used a [place] wire 0.014 extra length to cross the lesion successfully. He had 2 stents were placed. Both of them were 2.5 x 16, overlapped in the distal circumflex with excellent result and 0% residual. There were no complications. Blood Loss: 5 mL. Anesthesia: Total conscious sedation was 45 minutes. Medical Problem List: Shortness of breath, edema to the lower extremities secondary to acute on chronic systolic CHF with EF of 22% status post heart catheterization showing stenosis to the circumflex status post 2 successful stents placed in the distal circumflex Hypertension Diabetes mellitus type 2 GERD Diabetic neuropathy Gout Brief History of Present Illness: 51-year-old male with history of diabetes, gout, GERD and diabetic neuropathy. Patient presented to the emergency room with increasing shortness of breath. Patient reports increasing shortness of breath over the past month. Shortness of breath worse with exertion. He has noted increasing edema to the lower extremities as well. He does drink water excessively. Patient seen by cardiology recently. He had a cardiac stress test done this morning. It is reported that his cardiac stress test showed ejection fraction of 19%. He came to the ER for further evaluation. In the ER patient evaluated. CT scan revealed CHF pattern. White count 9.6, hemoglobin 15. Platelet count 327. Sodium 138, potassium 4.6. Creatinine 1.24 with a GFR of 61. Troponin negative. BNP elevated. Patient given IV Lasix in the emergency room. Patient admitted for further evaluation and treatment. Hospital Course: Patient presented with shortness of breath and edema to the lower extremities. This was secondary to acute on chronic systolic CHF. This was a new diagnosis. Echocardiogram shows ejection fraction 22%. Patient was seen and evaluated by cardiology. Cardiology recommended heart catheterization for further evaluati on. Patient had abnormal recent cardiac stress test. Heart catheterization performed showed LAD and RCA normal. Stenosis noted to the circumflex. 2 stents placed to the distal circumflex. Patient tolerated procedure well. Patient has done well postoperatively. Patient was diuresed. Patient on room air. No chest pain noted. At discharge the patient will continue with the 1500 cc/day fluid restriction and low-salt diet. At discharge the patient will continue with Lasix 40 mg 1 pill twice daily. He is to monitor his weight daily. If his weight increases by more than 5 pounds further adjustment in the medication may be required. This can be done with the help of his PCP or cardiology. Recommend to recheck labBMP in 1 week to monitor his progress. Patient may need to limit his activities due to his CHF. Recommend follow-up with cardiology in 1 week to clear to go back to work and activity. Will also recommend cardiac rehab as an outpatient. This can be done with the help of cardiology. For his CAD, patient will continue with aspirin 81 mg daily, Plavix 75 mg daily, Lipitor 10 mg daily, fish oil 1000 mg daily, carvedilol 6.25 mg 1 pill twice daily and lisinopril 2.5 mg daily. Recommend follow-up with cardiology in 1 week. Education on CHF and CAD provided. Prior to discharge will verify if the patient will require home oxygen. If home oxygen required this will be arranged. Recommend follow-up with PCP to further monitor and and follow-up this hospitalization. Patient with hypertension. Medications adjusted during the course of his stay. Patient was placed on carvedilol and lisinopril. At discharge the patient will continue with carvedilol 6.25 mg 1 pill twice daily and lisinopril 2.5 mg daily. Recommend to maintain blood pressure less than 130/80. Hold medication if blood pressure less than 110 systolic. Further adjustment in medication can be done by his PCP or cardiology. Patient with diabetes mellitus type 2. Blood sugar stable. At discharge patient will continue with his current medicationJardiance 25 mg daily and Janumet 50 mg/1000 mg 2 pills once daily, but hold off on restarting Janumet for at least 48 hours due to his heart catheterization. Hemoglobin A1c 8.3. Recommend to maintain blood sugar less than 140 fasting and less than 200 after meals. Recommend to recheck hemoglobin A1c every 3 months to monitor his progre ss. Recommend follow-up with PCP to further monitor and adjust medication. Patient with GERD. At discharge patient will continue with Prilosec 40 mg daily. Patient with diabetic neuropathy. At discharge patient may continue with gabapentin 100 mg 1 pill twice daily therefore. Higher doses of gabapentin can cause edema recommend to monitor medication closely especially with his new diagnosis of CHF. Further adjustment in medication can be done by PCP. Patient with gout. At discharge patient will continue with allopurinol 300 mg daily. Patient with hyperlipidemia. LDL 85. Patient taking fish oil at home. New medications includes Lipitor. At discharge patient will continue with fish oil 1000 mg daily and Lipitor 10 mg daily due to his CAD. Recommend to recheck labfasting lipid panel and CMP in 2 to 4 weeks to monitor his progress. Further adjustment can be done by his PCP or cardiology. Vital Signs/Physical Exam: Temp Pulse Resp BP Pulse Ox 97 F 70 16 95/70 94 10/07/21 10:27 10/07/21 10:27 10/07/21 10:27 10/07/21 10:27 10/07/21 10:27 General: Alert, In no apparent distress, Oriented x3, Cooperative HEENT: Atraumatic Neck: Supple Respiratory: Clear to auscultation bilaterally Cardiovascular: Normal pulses, Regular rate/rhythm Gastrointestinal: Normal bowel sounds, No tenderness, No masses, No rebound, No guarding Integumentary: No warmth, No cyanosis Neurological: Normal speech, Normal strength at 5/5 x4 extr, Normal tone Laboratory Data at Discharge: WBC 9.60 K/uL (4.3-10.9) 10/05/21 13:00 Hgb 15.3 g/dL (13.6-17.9) 10/05/21 13:00 Hct 47.4 % (39.6-49.0) 10/05/21 13:00 Plt Count 327 K/uL (152-406) 10/05/21 13:00 PT 13.7 SECONDS (9.5-12.5) H 10/05/21 13:00 INR 1.19 10/05/21 13:00 Sodium 141 mmol/L (136-145) 10/07/21 04:04 Potassium 4.0 mmol/L (3.5-5.1) 10/07/21 04:04 BUN 20 mg/dL (7-18) H 10/07/21 04:04 Creatinine 1.17 mg/dL (0.55-1.3) 10/07/21 04:04 Glucose 183 mg/dL (74-106) H 10/07/21 04:04 Magnesium 2.3 mg/dL (1.8-2.4) 10/07/21 04:04 Total Bilirubin 0.6 mg/dL (0.2-1.0) 10/05/21 13:00 AST 24 U/L (15-37) 10/05/21 13:00 ALT 41 U/L (12-78) 10/05/21 13:00 Alkaline Phosphatase 80 U/L (45-117) 10/05/21 13:00 Troponin I < 0.02 ng/mL (0.0-0.045) 10/06/21 00:27 Triglycerides 121 mg/dL (<150) 10/06/21 05:28 Cholesterol 138 mg/dL (<200) 10/06/21 05:28 HDL Cholesterol 29 mg/dL (40-60) L 10/06/21 05:28 Cholesterol/HDL Ratio 4.76 10/06/21 05:28 Home Medications: Allopurinol 300 mg PO DAILY 10/05/21 Cholecalciferol (Vitamin D3) [Vitamin D3] 1 tab PO DAILY 10/05/21 Empagliflozin [Jardiance] 1 tab PO SEECOM 10/05/21 Fish Oil/Borage/Flax/Om3,6,9 1 [[place] 3-6-9 1,200 mg Softgel] 1,200 mg PO DAILY 10/05/21 Gabapentin [Neurontin*] 1 cap PO BID 10/05/21 Omeprazole [Prilosec] 1 cap PO DAILY 10/05/21 Sitagliptin Phos/Metformin HCl [Janumet 50-1,000 mg Tablet] 2 tab PO DAILY 10/05/21 Aspirin [Aspirin EC 81 MG] 81 mg PO DAILY #90 tablet. 10/07/21 Atorvastatin Calcium [Lipitor] 10 mg PO BEDTIME #30 tab 10/07/21 Clopidogrel Bisulfate [Plavix*] 75 mg PO DAILY #30 tablet 10/07/21 Furosemide [Lasix] 40 mg PO BID #60 tablet 10/07/21 carvediloL [Coreg*] 6.25 mg PO BID 6AM 6PM #60 tab 10/07/21 lisinopriL [Prinivil*] 2.5 mg PO DAILY #30 tab 10/07/21 New Medications: Aspirin [Aspirin EC 81 MG] 81 mg PO DAILY #90 tablet. carvediloL [Coreg*] 6.25 mg PO BID 6AM 6PM #60 tab Furosemide [Lasix] 40 mg PO BID #60 tablet Atorvastatin Calcium [Lipitor] 10 mg PO BEDTIME #30 tab Clopidogrel Bisulfate [Plavix*] 75 mg PO DAILY #30 tablet lisinopriL [Prinivil*] 2.5 mg PO DAILY #30 tab Physician Discharge Instructions: Patient presented with shortness of breath and edema to the lower extremities. This was secondary to acute on chronic systolic CHF. This was a new diagnosis. Echocardiogram shows ejection fraction 22%. Patient was seen and evaluated by cardiology. Cardiology recommended heart catheterization for further evaluation. Patient had abnormal recent cardiac stress test. Heart catheterization performed showed LAD and RCA normal. Stenosis noted to the circumflex. 2 stents placed to the distal circumflex. Patient tolerated procedure well. Patient has done well postoperatively. Patient was diuresed. Patient on room air. No chest pain noted. At discharge the patient will continue with the 1500 cc/day fluid restriction and low-salt diet. At discharge the patient will continue with Lasix 40 mg 1 pill twice daily. He is to monitor his weight daily. If his weight increases by more than 5 pounds further adjustment in the medication may be required. This can be done with the help of his PCP or cardiology. Recommend to recheck labBMP in 1 week to monitor his progress. Patient may need to limit his activities due to his CHF. Recommend follow-up with cardiology in 1 week to clear to go back to work and activity. Will also recommend cardiac rehab as an outpatient. This can be done with the help of cardiology. For his CAD, patient will continue with aspirin 81 mg daily, Plavix 75 mg daily, Lipitor 10 mg daily, fish oil 1000 mg daily, car vedilol 6.25 mg 1 pill twice daily and lisinopril 2.5 mg daily. Recommend follow-up with cardiology in 1 week. Education on CHF and CAD provided. Prior to discharge will verify if the patient will require home oxygen. If home oxygen required this will be arranged. Recommend follow-up with PCP to further monitor and and follow-up this hospitalization. Patient with hypertension. Medications adjusted during the course of his stay. Patient was placed on carvedilol and lisinopril. At discharge the patient will continue with carvedilol 6.25 mg 1 pill twice daily and lisinopril 2.5 mg daily. Recommend to maintain blood pressure less than 130/80. Hold medication if blood pressure less than 110 systolic. Further adjustment in medication can be done by his PCP or cardiology. Patient with diabetes mellitus type 2. Blood sugar stable. At discharge patient will continue with his current medicationJardiance 25 mg daily and Janumet 50 mg/1000 mg 2 pills once daily, but hold off on restarting Janumet for at least 48 hours due to his heart catheterization. Hemoglobin A1c 8.3. Recommend to maintain blood sugar less than 140 fasting and less than 200 after meals. Recommend to recheck hemoglobin A1c every 3 months to monitor his progress. Recommend follow-up with PCP to further monitor and adjust medication. Patient with GERD. At discharge patient will continue with Prilosec 40 mg daily. Patient with diabetic neuropathy. At discharge patient may continue with gabapentin 100 mg 1 pill twice daily therefore. Higher doses of gabapentin can cause edema recommend to monitor medication closely especially with his new diagnosis of CHF. Further adjustment in medication can be done by PCP. Patient with gout. At discharge patient will continue with allopurinol 300 mg daily. Patient with hyperlipidemia. LDL 85. Patient taking fish oil at home. New medications includes Lipitor. At discharge patient will continue with fish oil 1000 mg daily and Lipitor 10 mg daily due to his CAD. Recommend to recheck labfasting lipid panel and CMP in 2 to 4 weeks to monitor his progress. Further adjustment can be done by his PCP or cardiology. Diet: ADA Activity: Ad katharine Followup: Anne Arevalo MD [Primary Care Provider] - Time spent managing pt's care (in minutes): 55
[2021-10-07] MEDS: carvediloL 6.25 MG TAB PO SCH (17:27)
[2021-10-07] MEDS: ATORVASTATIN 10 MG TAB PO SCH (22:02)
[2021-10-08 04:36] LABS: Magnesium 2.3 mg/dL (1.8-2.4); Potassium 3.5 mmol/L (3.5-5.1)
[2021-10-08] MEDS: carvediloL 6.25 MG TAB PO SCH (05:05)
[2021-10-08] MEDS: INSULIN -REGULAR HUMAN 50 UNIT/0.5 ML ML SQ SCH (07:30)
--- NOTE | 2021-10-08 07:43 | RAD REPORT ---
EXAM DESCRIPTION: Tiffany Single View10/08/2021 5:35 am CLINICAL HISTORY: Shortness of breath COMPARISON: October 06 FINDINGS: Right base has become more hazy. Mild bilateral interstitial lung opacities. Small left pleural effusion. Heart remains enlarged IMPRESSION: Mild bilateral interstitial lung opacities probably mild interstitial pulmonary edema Right base has become more hazy probably a combination of small to moderate pleural effusion and atel ectasis.
[2021-10-08] MEDS ORDERED: POTASSIUM CL SA 10 MEQ TAB PO ONE (09:00)
[2021-10-08] MEDS: ENOXAPARIN 40 MG/0.4 ML SQ SCH (09:00)
[2021-10-08] MEDS: lisinopriL 5 MG TAB PO SCH (09:00)
[2021-10-08] MEDS ORDERED: DOCOSAHEXANOIC AC/EPA 1000 MG PO SCH (09:00)
[2021-10-08] MEDS ORDERED: allopurinoL 300 MG TAB PO SCH (09:00)
[2021-10-08] MEDS ORDERED: CLOPIDOGREL 75 MG TABLET PO SCH (09:00)
[2021-10-08 09:21] VITALS: BP 100/73; TEMP 96.9
[2021-10-08] MEDS: FUROSEMIDE 40 MG/4 ML VIAL IV SCH (10:12)
[2021-10-08] MEDS: PANTOPRAZOLE 40MG TABLET PO SCH (10:13)
[2021-10-08] MEDS: VITAMIN D 1000 UNIT TAB PO SCH (10:13)
[2021-10-08] MEDS: allopurinoL 300 MG TAB PO SCH (10:13)
[2021-10-08] MEDS: ASPIRIN EC 81 MG TAB PO SCH (10:13)
[2021-10-08 11:30] VITALS: O2SAT 99
== END 2021-10-08 10:58 | disposition home or self-care (01) | DRG 246 ==
LOC: ER 11:57 → ERHOLD 14:53 → 2ND 20:00 → OBSVTOIN 10-06 07:44
PROVIDERS: ADMIT Family Medicine; ATTEND Family Medicine
PROC: 027035Z Dilation of Coronary Artery, One Artery with Two Drug-eluting Intraluminal Devices, Percutaneous Approach (ICD-10-PCS; principal; 2021-10-07)
PROC: 4A023N7 Measurement of Cardiac Sampling and Pressure, Left Heart, Percutaneous Approach (ICD-10-PCS; 2021-10-07)
PROC: B2111ZZ Fluoroscopy of Multiple Coronary Arteries using Low Osmolar Contrast (ICD-10-PCS; 2021-10-07)
DX: I11.0 Hypertensive heart disease with heart failure (principal); I21.4 Non-ST elevation (NSTEMI) myocardial infarction; I50.23 Acute on chronic systolic (congestive) heart failure; M10.9 Gout, unspecified; E78.5 Hyperlipidemia, unspecified; K21.9 Gastro-esophageal reflux disease without esophagitis; E11.40 Type 2 diabetes mellitus with diabetic neuropathy, unspecified; Z79.899 Other long term (current) drug therapy; Z20.822 Contact with and (suspected) exposure to COVID-19
CPT/HCPCS: 36415; 71045; 71275; 80048; 80061; 80076; 82550; 82553; 82947; 83036; 83735; 83880; 84439; 84443; 84484; 85025; 85347; 85610; 92928; 93005; 93306; 93454; 96374; 99284; C1725; C1760; C1893; G0378; J0583; J1644; J1650; J1940; J2250; J3010; J7040; Q9967; U0003

== ENCOUNTER 2021-10-17 14:16 | Observation (INO) | payer BC ==
--- OUTSIDE RECORDS SUMMARY | 2021-10-17 14:19 | XMS REPORT | Continuity of Care Document ---
:1970 Author Organization [facility] t Address [address] [place] [address] Dr. Roberts [address] [place] [address] Care Team Providers Name Role Phone GARO FOSTER Attending Clinician Unavailable Problems This patient has no known problems. Allergies, Adverse Reactions, Alerts This patient has no known allergies or adverse reactions. Medications This patient has no known medications. Procedures This patient has no known procedures. Encounters Start End Encounter Admission Attending Care Care Encounter Source Date/Time Date/Time Type Type Clinicians Facility Department ID 2021-10-15 2021-10-15 Outpatient COUNT INCLUDES [facility] [id number] [place] 00:00:00 00:00:00 GARO [address] 2021-05-12 2021-05-12 Outpatient COUNT INCLUDES THE [facility] [id number] [place] 00:00:00 00:00:00 GARO [address] 2021-05-12 2021-05-12 Outpatient COUNT INCLUDES THE [facility] [id number] [place] 00:00:00 00:00:00 GARO [address] 2020-10-23 2020-10-23 Outpatient COUNT INCLUDES THE [facility] [id number] [place] 00:00:00 00:00:00 GARO [address] 2020-01-30 2020-01-30 Outpatient COUNT INCLUDES THE [facility] [id number] [place] 00:00:00 00:00:00 GARO [address] Results This patient has no known results.
[2021-10-17] MEDS ORDERED: NA CHLORIDE 0.9% 1,000 ML ONE (15:14)
--- NOTE | 2021-10-17 15:22 | RAD REPORT ---
EXAM DESCRIPTION: RAD - Chest Single View - 10/17/2021 3:10 pm CLINICAL HISTORY: COUGH COMPARISON: Chest Single View dated 10/08/2021; Chest Single View dated 10/06/2021; Chest Single View da thomas 10/05/2021; Chest Pa And Lat (2 Views) dated 08/25/2021 FINDINGS: Lines: None. Lungs: Improved aeration of the right lung compared with prior. There are still some residual bilater al opacities. Pleural: No significant pleural effusions or pneumothorax. Cardiac: The heart size is within normal limits. Bones: No acute fractures. Other: IMPRESSION: Improved aeration of the lungs with mild residual opacities.
[2021-10-17 15:26] LABS: Protime INR 1.13
[2021-10-17 15:42] LABS: Albumin 3.7 g/dL (3.4-5.0); Bilirubin Direct 0.2 mg/dL (0-0.2); Bilirubin Total 0.6 mg/dL (0.2-1.0); Magnesium 3.2 mg/dL (1.8-2.4); Potassium 4.6 mmol/L (3.5-5.1); Protein, Total 7.7 g/dL (6.4-8.2); Troponin High Sensitivity 14.4 pg/mL (<58.9)
[2021-10-17 15:48] LABS: Absolute Lymphocytes (CBC) 0.9 K/uL (0.7-4.9); RBC Red Blood Cell Count 6.05 M/uL (4.33-5.43)
[2021-10-17] MEDS ORDERED: FAMOTIDINE 20 MG/2 ML VIAL IV ONE (17:09)
[2021-10-17] MEDS ORDERED: NA CHLORIDE 0.9% 500 ML ONE (17:09)
[2021-10-17] MEDS ORDERED: DIGOXIN 0.25 MG/ML AMP ONE (17:55)
[2021-10-17] MEDS ORDERED: BENZONATATE 100 MG CAP PO PRN (21:18)
[2021-10-17] MEDS ORDERED: ONDANSETRON 4 MG/2 ML VIAL IV PRN (21:18)
[2021-10-17] MEDS ORDERED: ACETAMINOPHEN 500 MG TAB PO PRN (21:18)
[2021-10-17] MEDS: INSULIN -REGULAR HUMAN 50 UNIT/0.5 ML ML SQ SCH (21:18)
[2021-10-17 21:51] VITALS: BMI 27.8
--- NOTE | 2021-10-17 22:43 | ER ---
Nurse's Notes [facility] Name: Edison Cummins III Age: 51 yrs Sex: Male : 1970 Arrival Date: 10/17/2021 Time: 14:17 Bed 18 Private MD: Diagnosis: Coronavirus infection, unspecified;Hypotension, unspecified;Acute on chronic combined systolic (congestive) and diastolic (congestive) heart failure Presentation: 10/17 14:32 Chief complaint: Patient states: blood pressure has been low for a week. Dr. Randle tw2 said my parameters to take the carvedilol was systolic 100 mmHg but i have been feeling dizzy. and i feel weak. i think i am short of breath and i feel it is the CHF and fluid building up. Coronavirus screen: At this time, the client does not indicate any symptoms associated with coronavirus-19. Ebola Screen: Patient denies travel to an Ebola-affected area in the 21 days before illness onset. Initial Sepsis Screen: Does the patient meet any 2 criteria? No. Patient's initial sepsis screen is negative. Does the patient have a suspected source of infection? No. Patient's initial sepsis screen is negative. Risk Assessment: Do you want to hurt yourself or someone else? Patient reports no desire to harm self or others. Onset of symptoms was October 17, 2021. 14:32 Method Of Arrival: Wheelchair tw2 14:32 Acuity: VANDANA 2 tw2 Triage Assessment: 14:42 General: Appears in no apparent distress. Behavior is calm, cooperative, appropriate tw2 for age. Pain: Denies pain. Neuro: Reports dizziness. Respiratory: Reports shortness of breath at rest Onset: The symptoms/episode began/occurred 1 week, the patient has mild shortness of breath. Historical: - Allergies: 14:39 No Known Allergies; tw2 - Home Meds: 14:39 allopurinol 300 mg Oral tab 1 tab once daily [Active]; gabapentin 100 mg Oral cap 1 cap tw2 twice a day [Active]; omeprazole 40 mg Oral cpDR 1 cap once daily [Active]; Lipitor 10 mg Oral tab 1 tab once daily [Active]; carvedilol 6.25 mg oral tab 1 tab 2 times per day [Active]; Januvia 100 mg oral tab 1 tab once daily [Active]; Lasix 40 mg Oral tab 1 tab 2 times per day [Active]; Tresiba U-100 Insulin 100 unit/mL subcutaneous soln 16 units a day [Active]; - PMHx: 14:39 diabetes mellitus; CHF; tw2 - PSHx: 14:39 cardiac stents; tw2 - Immunization history:: Client reports receiving the 2nd dose of the Covid vaccine, Flu vaccine is not up to date. - Social history:: Smoking status: Patient denies any tobacco usage or history of. Screenin:58 Abuse screen: Denies threats or abuse. Denies injuries from another. Nutritional jg9 screening: No deficits noted. Tuberculosis screening: No symptoms or risk factors identified. Fall Risk None identified. Assessment: 14:58 Cardiovascular: Rhythm is sinus tachycardia. Respiratory: Airway is patent Respiratory jg9 effort is even, unlabored. 14:59 Respiratory: Breath sounds are clear bilaterally. jg9 15:26 Reassessment: Patient appears in no apparent distress at this time. No changes from previously documented assessment. Patient and/or family updated on plan of care and expected duration. Pain level reassessed. Patient is alert, oriented x 3, equal unlabored respirations, skin warm/dry/pink. spouse at bedside. Offered warm blanket and refused. General: Appears in no apparent distress. Behavior is calm, cooperative, appropriate for age. Neuro: Level of Consciousness is awake, alert, obeys commands, Oriented to person, place, time. 16:16 Reassessment: Patient appears in no apparent distress at this time. No changes from ww previously documented assessment. Patient and/or family updated on plan of care and expected duration. Pain level reassessed. Patient is alert, oriented x 3, equal unlabored respirations, skin warm/dry/pink. 20:43 Reassessment: See paper charting prior to 2100. al4 20:44 Reassessment: patient asking for food. patient offered sandwich and applesauce with al4 approval from ALONZO Marx. 21:00 General: Appears in no apparent distress. Behavior is calm, cooperative, appropriate al4 for age. Pain: Denies pain. Neuro: Level of Consciousness is awake, alert, obeys commands, Oriented to person, place, time. Cardiovascular: Heart tones present Rhythm is sinus tachycardia. Respiratory: Airway is patent Respiratory effort is even, unlabored, Breath sounds are clear. GI: No signs and/or symptoms were reported involving the gastrointestinal system. : No signs and/or symptoms were reported regarding the genitourinary system. EENT: No signs and/or symptoms were reported regarding the EENT system. EENT: No signs and/or symptoms were reported regarding the EENT system. Derm: No signs and/or symptoms reported regarding the dermatologic system. Musculoskeletal: Range of motion: intact in all extremities. 22:00 Reassessment: urinal given to patient, call light at bedside, family at bedside. al4 patient is resting comfortably. 10/18 00:00 Reassessment: patient is sleeping. family at bedside. al4 01:00 Reassessment: No changes from previously documented assessment. al4 02:00 Reassessment: Patient is alert, oriented x 3, equal unlabored respirations, skin al4 warm/dry/pink. Vital Signs: 10/17 14:25 Pulse 101; Resp 17; Pulse Ox 95% on R/A; tw2 14:32 BP 80 / 65; Pulse 106; Resp 17; Temp 96.8(TE); Pulse Ox 99% on R/A; Weight 80.74 kg (R);tw2 15:00 BP 81 / 68; Pulse 77; Resp 17 S; Pulse Ox 99% on R/A; jg9 16:17 BP 87 / 70; Pulse 109; Resp 16; Pulse Ox 96% on R/A; ww 16:45 BP 93 / 77; Pulse 110; Resp 18; Pulse Ox 98% on R/A; ww 21:00 BP 103 / 77; Pulse 110; Resp 28 S; Pulse Ox 100% on R/A; al4 22:00 BP 105 / 75; Pulse 112; Resp 23; Pulse Ox 100% ; al4 10/18 00:00 BP 101 / 69; Pulse 116; Resp 26; Pulse Ox 96% ; al4 01:00 BP 101 / 67; Pulse 116; Resp 24; Pulse Ox 96% ; al4 02:00 BP 107 / 67; Pulse 112; Resp 26 S; Pulse Ox 96% on R/A; al4 03:30 BP 95 / 62; Pulse 107; Resp 18; Pulse Ox 94% on R/A; mk 04:30 BP 96 / 61; Pulse 101; Resp 18; Pulse Ox 94% on R/A; mk 05:30 BP 96 / 63; Pulse 99; Resp 18; Pulse Ox 94% on R/A; mk 06:30 BP 94 / 66; Pulse 98; Resp 18; Pulse Ox 94% on R/A; mk [place] Coma Score: 03:30 Eye Response: spontaneous(4). Verbal Response: oriented(5). Motor Response: obeys mk commands(6). Total: 15. 04:30 Eye Response: spontaneous(4). Verbal Response: oriented(5). Motor Response: obeys mk commands(6). Total: 15. 05:30 Eye Response: spontaneous(4). Verbal Response: oriented(5). Motor Response: obeys mk commands(6). Total: 15. 06:30 Eye Response: spontaneous(4). Verbal Response: oriented(5). Motor Response: obeys mk commands(6). Total: 15. ED Course: 10/17 14:17 Patient arrived in ED. ds1 14:39 Triage completed. tw2 14:42 Arm band placed on. tw2 14:46 Luis Garcia MD is Attending Physician. rosalinda 14:49 Catherine Bryant, RN is Primary Nurse. jg9 14:58 EKG done, by ED staff, reviewed by Luis Garcia MD. dh3 15:10 XRAY Chest (1 view) In Process Unspecified. EDMS 15:19 Basic Metabolic Panel Sent. jg9 15:19 CBC with Diff Sent. jg9 15:26 Patient has correct armband on for positive identification. Bed in low position. Call ww light in reach. Adult w/ patient. 15:26 No provider procedures requiring assistance completed. Inserted saline lock: 20 gauge ww in left antecubital area, using aseptic technique. Blood collected. 20:48 Carter Robles is Hospitalizing Provider. [facility] 10/18 06:14 Primary Nurse role handed off by Catherine Bryant, YESSI eb 07:08 Marleen Lopez, RN is Primary Nurse. Administered Medications: 10/17 15:18 Drug: NS 0.9% 1000 ml Route: IV; Rate: 125 ml/hr; Site: left antecubital; jg9 Outcome: 20:50 Decision to Hospitalize by Provider. [facility] 10/18 13:01 Patient left the ED. tw2 Signatures: Dispatcher [employer] EDMS Luis Garcia MD MD cha Sanford, Demi ds1 Kathryn Grullon RN RN tw2 Sara Ramires 3 Ana José Maurice, MD MD 7 Jefe Gomez al4 Catherine Bryant RN RN jg9 Marii Mckeon RN YESSI ww Marleen Lopez RN RN mk Corrections: (The following items were deleted from the chart) 10/17 22:18 20:43 Reassessment: See paper charting for [id number]. al4 al4
--- NOTE | 2021-10-17 22:43 | EDPHYS ---
Physician Documentation [facility] Name: Edison Cummins III Age: 51 yrs Sex: Male : 1970 Arrival Date: 10/17/2021 Time: 14:17 Bed 18 Private MD: RA Physician Luis Garcia Historical: - Allergies: 10/17 14:39 No Known Allergies; tw2 - Home Meds: 14:39 allopurinol 300 mg Oral tab 1 tab once daily [Active]; gabapentin 100 mg Oral cap 1 cap tw2 twice a day [Active]; omeprazole 40 mg Oral cpDR 1 cap once daily [Active]; Lipitor 10 mg Oral tab 1 tab once daily [Active]; carvedilol 6.25 mg oral tab 1 tab 2 times per day [Active]; Januvia 100 mg oral tab 1 tab once daily [Active]; Lasix 40 mg Oral tab 1 tab 2 times per day [Active]; Tresiba U-100 Insulin 100 unit/mL subcutaneous soln 16 units a day [Active]; - PMHx: 14:39 diabetes mellitus; CHF; tw2 - PSHx: 14:39 cardiac stents; tw2 - Immunization history:: Client reports receiving the 2nd dose of the Covid vaccine, Flu vaccine is not up to date. - Social history:: Smoking status: Patient denies any tobacco usage or history of. Vital Signs: 14:25 Pulse 101; Resp 17; Pulse Ox 95% on R/A; tw2 14:32 BP 80 / 65; Pulse 106; Resp 17; Temp 96.8(TE); Pulse Ox 99% on R/A; Weight 80.74 kg (R);tw2 15:00 BP 81 / 68; Pulse 77; Resp 17 S; Pulse Ox 99% on R/A; jg9 16:17 BP 87 / 70; Pulse 109; Resp 16; Pulse Ox 96% on R/A; ww 16:45 BP 93 / 77; Pulse 110; Resp 18; Pulse Ox 98% on R/A; ww 21:00 BP 103 / 77; Pulse 110; Resp 28 S; Pulse Ox 100% on R/A; al4 22:00 BP 105 / 75; Pulse 112; Resp 23; Pulse Ox 100% ; al4 10/18 00:00 BP 101 / 69; Pulse 116; Resp 26; Pulse Ox 96% ; al4 01:00 BP 101 / 67; Pulse 116; Resp 24; Pulse Ox 96% ; al4 02:00 BP 107 / 67; Pulse 112; Resp 26 S; Pulse Ox 96% on R/A; al4 03:30 BP 95 / 62; Pulse 107; Resp 18; Pulse Ox 94% on R/A; mk 04:30 BP 96 / 61; Pulse 101; Resp 18; Pulse Ox 94% on R/A; mk 05:30 BP 96 / 63; Pulse 99; Resp 18; Pulse Ox 94% on R/A; mk 06:30 BP 94 / 66; Pulse 98; Resp 18; Pulse Ox 94% on R/A; mk [place] Coma Score: 03:30 Eye Response: spontaneous(4). Verbal Response: oriented(5). Motor Response: obeys mk commands(6). Total: 15. 04:30 Eye Response: spontaneous(4). Verbal Response: oriented(5). Motor Response: obeys mk commands(6). Total: 15. 05:30 Eye Response: spontaneous(4). Verbal Response: oriented(5). Motor Response: obeys mk commands(6). Total: 15. 06:30 Eye Response: spontaneous(4). Verbal Response: oriented(5). Motor Response: obeys mk commands(6). Total: 15. MDM: 10/17 14:46 Patient medically screened. [facility] 10/17 14:47 Order name: Basic Metabolic Panel [facility] 10/17 14:47 Order name: CBC with Diff [facility] 10/17 14:47 Order name: LFT's; Complete Time: 16:44 rosalinda 10/17 14:47 Order name: Magnesium; Complete Time: 16:44 [facility] 10/17 14:47 Order name: NT PRO-BNP; Complete Time: 16:44 rosalinda 10/17 14:47 Order name: PT-INR 10/17 14:47 Order name: Troponin HS; Complete Time: 16:44 [facility] 10/17 14:47 Order name: D-Dimer [facility] 10/17 14:47 Order name: SARS-COV-2 RT PCR (Document "Date of Onset" if Symptomatic) [facility] 10/17 14:48 Order name: Basic Metabolic Panel; Complete Time: 16:44 EDAR 10/17 14:48 Order name: CBC with Automated Diff; Complete Time: 16:44 EDMS 10/18 00:05 Order name: Troponin High Sensitivity EDMS 10/18 04:21 Order name: CBC with Automated Diff EDMS 10/18 04:48 Order name: Comprehensive Metabolic Panel EDMS 10/17 14:47 Order name: XRAY Chest (1 view); Complete Time: 16:44 [facility] 10/17 14:47 Order name: EKG; Complete Time: 14:48 [facility] 10/17 14:47 Order name: Cardiac monitoring; Complete Time: 14:58 [facility] 10/18 04:48 Order name: Phosphorus EDMS 10/18 04:48 Order name: Troponin High Sensitivity EDMS 10/18 04:48 Order name: Lipid Profile EDMS 10/18 04:48 Order name: T4 Free EDMS 10/18 04:48 Order name: Magnesium EDMS 10/18 04:48 Order name: Thyroid Stimulating Hormone EDMS 10/18 08:37 Order name: Glucose, Ancillary Testing EDMS 10/18 08:38 Order name: Glucose, Ancillary Testing EDMS 10/18 08:38 Order name: Glucose, Ancillary Testing EDMS 10/18 11:59 Order name: Glucose, Ancillary Testing EDMS 10/17 14:47 Order name: EKG - Nurse/Tech; Complete Time: 14:58 [facility] 10/17 14:47 Order name: IV Saline Lock; Complete Time: 15:19 [facility] 10/17 14:47 Order name: Labs collected and sent; Complete Time: 15:19 [facility] 10/17 14:47 Order name: O2 Per Protocol; Complete Time: 14:58 [facility] 10/17 14:47 Order name: O2 Sat Monitoring; Complete Time: 14:58 [facility] Administered Medications: 15:18 Drug: NS 0.9% 1000 ml Route: IV; Rate: 125 ml/hr; Site: left antecubital; jg9 Disposition Summary: 10/17/21 20:50 Hospitalization Ordered Hospitalization Status: Inpatient Admission mh7 Provider: Carter Robles Condition: Stable mh7 Problem: an acute exacerbation mh7 Symptoms: have improved mh7 Bed/Room Type: Standard [facility] Location: [facility] ER HOLD(10/17/21 20:50) mw Room Assignment: ERHOLD-(10/17/21 20:50) mw Diagnosis - Coronavirus infection, unspecified mh7 - Hypotension, unspecified mh7 - Acute on chronic combined systolic (congestive) and diastolic (congestive) heart [facility] failure Forms: - Medication Reconciliation Form 7 - SBAR form 7 Signatures: Dispatcher [employer] Yasmin Gomez RN RN mw Anderson, Corey, MD MD cha Wise, Tara, RN RN tw2 Abilio Sin MD MD mh7 Catherine Bryant RN RN jg9 Corrections: (The following items were deleted from the chart) 20:50 20:50 Telemetry/MedSurg (Inpatient) [facility] mw 20:50 20:50 [facility] mw
--- NOTE | 2021-10-17 23:02 | P.HP ---
Certification for Inpatient Patient admitted to: Inpatient With expected LOS: <2 Midnights Patient will require the following post-hospital care: None Practitioner: I am a practitioner with admitting privileges, knowledge of patient current condition, hospital course, and medical plan of care. Services: Services provided to patient in accordance with Admission requirements found in Title 42 Section 412.3 of the Code of Federal Regulations Patient History Date of Service: 10/17/21 Reason for admission: hypotension, COVID History of Present Illness: Mr. Cummins is a 51 yo M with CHF (EF 22% 10/2021), CAD, DM who presents with low blood pressure. 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 Diuresed around 20 lbs in the hospital. He is doing a trial of medical management for 90 days before pacemaker placement. He was discharged on carvedilol, lisinopril and furosemide but his systolic BP has been too low to take them. Today he took them for the first time and his BP dropped to 70/40. He says he felt lightheaded, dizzy, SOB. COVID test returns positive. He reports weakness, decreased appetite, fever, and cough. He received 1.5 liters of fluid in the ED as well as 0.5 IV digoxin x 1 for tachycardia. BP improving at this time and he is asymptomatic at bedside, asking to eat. BUN 21 Cr 1.47 GFR 51 Glu 236 AST 55 BNP 4678 CXR IMPRESSION: Improved aeration of the lungs with mild residual opacities. Allergies No Known Allergies Allergy (Unverified 10/05/21 17:23) Home Medications: Allopurinol 300 mg PO DAILY 10/05/21 Cholecalciferol (Vitamin D3) [Vitamin D3] 1 tab PO DAILY 10/05/21 Empagliflozin [Jardiance] 1 tab PO SEECOM 10/05/21 Fish Oil/Borage/Flax/Om3,6,9 1 [[place] 3-6-9 1,200 mg Softgel] 1,200 mg PO DAILY 10/05/21 Gabapentin [Neurontin*] 1 cap PO BID 10/05/21 Omeprazole [Prilosec] 1 cap PO DAILY 10/05/21 Sitagliptin Phos/Metformin HCl [Janumet 50-1,000 mg Tablet] 2 tab PO DAILY 10/05/21 Aspirin [Aspirin EC 81 MG] 81 mg PO DAILY #90 tablet. 10/07/21 Atorvastatin Calcium [Lipitor] 10 mg PO BEDTIME #30 tab 10/07/21 Clopidogrel Bisulfate [Plavix*] 75 mg PO DAILY #30 tablet 10/07/21 Furosemide [Lasix] 40 mg PO BID #60 tablet 10/07/21 carvediloL [Coreg*] 6.25 mg PO BID 6AM 6PM #60 tab 10/07/21 lisinopriL [Prinivil*] 2.5 mg PO DAILY #30 tab 10/07/21 - Past Medical/Surgical History Diabetic: Yes -: Diabetes mellitus type 2 [id number] -: GERD -: Gout -: Diabetic neuropathy -: Pericarditis 2011 -: CHF -: CAD -: 2 cardiac stents 10/2021 Psychosocial/ Personal History: Patient is . 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 - Family History Mother -: Heart disease, Hypertension, Other (see notes) - Social History Smoking Status: Never smoker Alcohol use: Yes CD- Drugs: No Caffeine use: Yes Place of Residence: Home Review of Systems 10-point ROS is otherwise unremarkable General: Fever, Weakness, Malaise Eyes: Unremarkable ENT: Unremarkable Respiratory: Shortness of Breath Cardiovascular: Light Headedness Gastrointestinal: Unremarkable Genitourinary: Unremarkable Musculoskeletal: Unremarkable Integumentary: Unremarkable Neurological: Unremarkable Lymphatics: Unremarkable Physical Examination - Vital Signs Blood Pressure: 104/81 Pulse: 113 Respirations: 30 - Physical Exam General: Alert, In no apparent distress HEENT: Atraumatic, PERRLA, Mucous membr. moist/pink, EOMI, Sclerae nonicteric Neck: Supple, 2+ carotid pulse no bruit, No LAD, Without JVD or thyroid abnormality Respiratory: Diminished, Crackles/rales Cardiovascular: No edema, Regular rate/rhythm, Normal S1 S2 Gastrointestinal: Normal bowel sounds, No tenderness Musculoskeletal: No tenderness Integumentary: No rashes Neurological: Normal speech, Normal strength at 5/5 x4 extr, Normal tone, Normal affect Lymphatics: No axilla or inguinal lymphadenopathy - Studies Laboratory Data (last 24 hrs) 10/17/21 15:12: PT 13.0 H, INR 1.13 10/17/21 15:12: Sodium 135 L, Potassium 4.6, BUN 21 H, Creatinine 1.47 H, Glucose 236 H, Magnesium 3.2 H D, Total Bilirubin 0.6, AST 55 H, ALT 45, Alkaline Phosphatase 113 10/17/21 03:35: WBC 4.60 D, Hgb 15.8, Hct 50.0 H, Plt Count 252 D Assessment and Plan - Problems (Diagnosis) (1) CHF (congestive heart failure) Current Visit: Yes Status: Chronic Qualifiers: Heart failure chronicity: chronic (2) CAD (coronary artery disease) Current Visit: Yes Status: Chronic Qualifiers: Coronary Disease-Associated Artery/Lesion type: [place] artery [place] vs. 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 insulin use: with skilled nursing use Diabetes mellitus complication status: with kidney complications Diabetes mellitus complication detail: with chronic kidney disease Chronic kidney disease stage 3 subtype: stage 3a (GFR 45-59) (4) Hypotension Current Visit: Yes Status: Acute Qualifiers: Hypotension type: unspecified hypotension type Qualified Code(s): I95.9 - Hypotension, unspecified (5) COVID Current Visit: Yes Status: Acute (6) VALARIE (acute kidney injury) Current Visit: Yes Status: Acute - Plan cardiology consulted, nephrology consulted hold lasix, hold fluids, hold BP medications on tele, trend troponins sliding scale insulin and accuchecks daily weights, O2 as needed manage covid symptoms with antipyretics, antitussives PRN Discharge Plan: Home Plan to discharge in: 48 Hours - Advance Directives Does patient have a Living Will: No Does patient have a Durable POA for Healthcare: No - Code Status/Comfort Care Code Status Assessed: Yes (full code ) Critical Care: No Time Spent Managing Pts Care (In Minutes): 70
[2021-10-18 02:43] VITALS: TEMP 101.3
[2021-10-18] MEDS ORDERED: ACETAMINOPHEN 500 MG TAB ONE (02:47)
[2021-10-18] MEDS ORDERED: BENZONATATE 100 MG CAP PO ONE (02:47)
[2021-10-18 04:17] LABS: Absolute Lymphocytes (CBC) 1.3 K/uL (0.7-4.9); Hematocrit 44.8 % (39.6-49.0); MPV 9.1 fL (7.6-11.3); RBC Red Blood Cell Count 5.45 M/uL (4.33-5.43)
[2021-10-18 04:41] LABS: Albumin 3.1 g/dL (3.4-5.0); Bilirubin Total 0.5 mg/dL (0.2-1.0); Magnesium 2.1 mg/dL (1.8-2.4); Phosphorus 2.7 mg/dL (2.5-4.9); Protein, Total 6.7 g/dL (6.4-8.2); Thyroid Stimulating Hormone 0.798 uIU/mL (0.360-3.740)
[2021-10-18] MEDS: INSULIN -REGULAR HUMAN 50 UNIT/0.5 ML ML SQ SCH ×2 (07:30→11:30)
[2021-10-18] MEDS ORDERED: ENOXAPARIN 40 MG/0.4 ML SQ SCH ×2 (09:00)
[2021-10-18] MEDS ORDERED: ENOXAPARIN 40 MG/0.4 ML SQ ONE (09:13)
[2021-10-18 12:00] VITALS: BP 93/74
--- NOTE | 2021-10-18 12:07 | P.DS ---
Admission Date: 10/17/21 Discharge Date: 10/18/21 Disposition: ROUTINE DISCHARGE Discharge Condition: FAIR Reason for Admission: hypotension, COVID - Problems (1) Hypotension Current Visit: Yes Status: Acute Qualifiers: Hypotension type: unspecified hypotension type Qualified Code(s): I95.9 - Hypotension, unspecified (2) Chronic systolic heart failure Current Visit: Yes Status: Acute (3) COVID Current Visit: Yes Status: Acute (4) CAD (coronary artery disease) Current Visit: Yes Status: Chronic Qualifiers: Coronary Disease-Associated Artery/Lesion type: [place] artery [place] vs. transplanted heart: [place] heart Associated angina: without angina Qualified Code(s): I25.10 - Atherosclerotic heart disease of [place] coronary artery without angina pectoris (5) T2DM (type 2 diabetes mellitus) Current Visit: Yes Status: Chronic Qualifiers: Diabetes mellitus retirement insulin use: with retirement use Diabetes mellitus complication status: with kidney complications Diabetes mellitus complication detail: with chronic kidney disease Chronic kidney disease stage 3 subtype: stage 3a (GFR 45-59) Brief History of Present Illness: Mr. Cummins is a 51 yo M with CHF (EF 22% 10/2021), CAD, DM who presents with low blood pressure. One week ago, he was diagnosed with new onset heart failure and was taking to the landscape [employer], and 2 stents were placed in his circumflex artery on 10/07/21. Diuresed around 20 lbs in the hospital. He is doing a trial of medical management for 90 days before pacemaker placement. He was discharged on carvedilol, lisinopril and furosemide but his systolic BP has been too low to take them. Today he took them altogether for the first time and his BP dropped to 70/40. He says he felt lightheaded, dizzy, SOB. COVID test returns positive. He reports weakness, decreased appetite, fever, and cough. He received 1.5 liters of fluid in the ED as well as 0.5 IV digoxin x 1 for tachycardia. BP improving at this time and he is asymptomatic at bedside, asking to eat. Patient placed under observation for monitoring.. Hospital Course: Patient placed under observation on the medical floor. His troponin trended negative. Patient was asymptomatic except fever. Blood pressure was also stable. His Lasix and other heart failure medications were held overnight. Patient is asking to go home and would not wait for cardiology. He told me he has plans to call Dr. Randle tomorrow for adjustment in his medications and that he would prefer Dr. Randle to make the adjustments rather than Dr. Oh. Patient was discharged per his request to follow-up with Dr. Randle. Vital Signs/Physical Exam: Temp Pulse Resp BP Pulse Ox 101.3 F H 109 H 17 93/74 95 10/18/21 02:51 10/18/21 11:58 10/18/21 11:58 10/18/21 11:58 10/18/21 11:58 General: Alert, In no apparent distress, Oriented x3 HEENT: Mucous membr. moist/pink Neck: JVD not distended Respiratory: Clear to auscultation bilaterally, Normal air movement Cardiovascular: No edema, Normal S1 S2, Other (Tachycardia) Gastrointestinal: Soft and benign, Non-distended, No tenderness Musculoskeletal: No swelling Integumentary: No rashes Neurological: Normal strength at 5/5 x4 extr Laboratory Data at Discharge: WBC 5.10 K/uL (4.3-10.9) 10/18/21 03:55 Hgb 14.3 g/dL (13.6-17.9) 10/18/21 03:55 Hct 44.8 % (39.6-49.0) 10/18/21 03:55 Plt Count 207 K/uL (152-406) 10/18/21 03:55 PT 13.0 SECONDS (9.5-12.5) H 10/17/21 15:12 INR 1.13 10/17/21 15:12 Sodium 138 mmol/L (136-145) 10/18/21 03:55 Potassium 4.0 mmol/L (3.5-5.1) 10/18/21 03:55 BUN 17 mg/dL (7-18) 10/18/21 03:55 Creatinine 1.05 mg/dL (0.55-1.3) 10/18/21 03:55 Glucose 96 mg/dL (74-106) 10/18/21 03:55 Phosphorus 2.7 mg/dL (2.5-4.9) 10/18/21 03:55 Magnesium 2.1 mg/dL (1.8-2.4) D 10/18/21 03:55 Total Bilirubin 0.5 mg/dL (0.2-1.0) 10/18/21 03:55 AST 27 U/L (15-37) 10/18/21 03:55 ALT 33 U/L (12-78) 10/18/21 03:55 Alkaline Phosphatase 86 U/L (45-117) 10/18/21 03:55 Triglycerides 73 mg/dL (<150) 10/18/21 03:55 Cholesterol 98 mg/dL (<200) 10/18/21 03:55 HDL Cholesterol 28 mg/dL (40-60) L 10/18/21 03:55 Cholesterol/HDL Ratio 3.50 10/18/21 03:55 Home Medications: Allopurinol 300 mg PO DAILY 10/05/21 Cholecalciferol (Vitamin D3) [Vitamin D3] 1 tab PO DAILY 10/05/21 Empagliflozin [Jardiance] 1 tab PO SEECOM 10/05/21 Fish Oil/Borage/Flax/Om3,6,9 1 [Egan 3-6-9 1,200 mg Softgel] 1,200 mg PO DAILY 10/05/21 Gabapentin [Neurontin*] 1 cap PO BID 10/05/21 Omeprazole [Prilosec] 1 cap PO DAILY 10/05/21 Sitagliptin Phos/Metformin HCl [Janumet 50-1,000 mg Tablet] 2 tab PO DAILY 10/05/21 Aspirin [Aspirin EC 81 MG] 81 mg PO DAILY #90 tablet. 10/07/21 Atorvastatin Calcium [Lipitor*] 10 mg PO BEDTIME #30 tab 10/07/21 Clopidogrel Bisulfate [Plavix*] 75 mg PO DAILY #30 tablet 10/07/21 lisinopriL [Prinivil*] 2.5 mg PO DAILY #30 tab 10/07/21 Benzonatate [Tessalon Perle*] 100 mg PO TID PRN #30 cap 10/18/21 Furosemide [Lasix] 40 mg PO DAILY #30 tablet 10/18/21 carvediloL [Coreg*] 3.125 mg PO BID 6AM 6PM #30 tab 10/18/21 New Medications: carvediloL [Coreg*] 3.125 mg PO BID 6AM 6PM #30 tab Furosemide [Lasix] 40 mg PO DAILY #30 tablet Benzonatate [Tessalon Perle*] 100 mg PO TID PRN #30 cap PRN Reason: Cough Diet: ADA Activity: Ad katharine Followup: OOT,OOT [Primary Care Provider] -
[2021-10-18 13:23] VITALS: O2SAT 94
== END 2021-10-18 12:59 | disposition home or self-care (01) ==
LOC: ER 14:16 → ERHOLD 21:25
PROVIDERS: ADMIT Internal Medicine; ATTEND Internal Medicine
DX: I95.9 Hypotension, unspecified (principal); U07.1 COVID-19; I50.22 Chronic systolic (congestive) heart failure; I25.10 Atherosclerotic heart disease of native coronary artery without angina pectoris; N17.9 Acute kidney failure, unspecified; R00.0 Tachycardia, unspecified; E11.40 Type 2 diabetes mellitus with diabetic neuropathy, unspecified; K21.9 Gastro-esophageal reflux disease without esophagitis; M10.9 Gout, unspecified; Z95.5 Presence of coronary angioplasty implant and graft; Z79.02 Long term (current) use of antithrombotics/antiplatelets; Z79.82 Long term (current) use of aspirin; Z82.49 Family history of ischemic heart disease and other diseases of the circulatory system
CPT/HCPCS: 93005; 85025 ×2; 80048; 36415; 83735 ×2; 84100; 85610; 80061; 82947 ×4; 85379; 80076; 84443; 84484 ×3; 84439; 80053; 83880; 71045; 99284; U0003; J1160; J1650; J7040; J7030; G0378 ×3

== ENCOUNTER 2022-09-15 08:44 | Day surgery (SDC) | payer BC ==
[2022-09-15] MEDS ORDERED: NA CHLORIDE 0.9% 500 ML ONE (09:14)
[2022-09-15] MEDS ORDERED: propofoL 200 MG/20 ML VIAL IV ONE (10:18)
[2022-09-15] MEDS ORDERED: LIDOCAINE 1% MPF 5 ML VIAL ONE (10:18)
[2022-09-15] MEDS ORDERED: GLYCOPYRROLATE 0.2 MG/ML SYR ONE (10:40)
--- NOTE | 2022-09-15 11:03 | ENDO RPT ---
[address], [address] COLONOSCOPY PROCEDURE REPORT EXAM DATE: 09/15/2022 PATIENT NAME: Edison Cummins MR #: [id number] BIRTHDATE: 1970 ATTENDING: Chandana Hauser MD STATUS: outpatient PLANT ATTENDANT: Odilia Earl RN, Adrianna Carmona RN, and Karuna LOWRY INDICATIONS: The patient is a 52 yr old Male here for a colonoscopy due to PROCEDURE PERFORMED: Screening Colonoscopy MEDICATIONS: Per Anesthesia. ESTIMATED BLOOD LOSS: None CONSENT: The patient understands the risks and benefits of the procedure and understands that these risks include, but are not limited to: sedation, allergic reaction, infection, perforation and/or bleeding. Alternative means of evaluation and treatment include, among others: physical exam, x-rays, and/or surgical intervention. The patient elects to proceed with this endoscopic procedure. DESCRIPTION OF PROCEDURE: During intra-op preparation period all mechanical medical equipment was checked for proper function. Hand hygiene and appropriate measures for infection prevention was taken. Procedure, possible complications, alternatives including, but not limited to possibility of bleeding, perforation, tear, infection, sepsis, need for surgery, need for blood transfusion, were explained to the patient. After the risks, benefits and alternatives of the procedure were thoroughly explained, Informed consent was verified, confirmed and timeout was successfully executed by the treatment team. The patient was placed in the left lateral position. A digital rectal exam was performed and revealed external hemorrhoids. After appropriate level of anesthesia, the scope was passed. The EC-[id number] ([id number]) and [id number] ([id number]) endoscope was introduced through the anus and advanced to the cecum, which was identified by transillumination from the light source, the appendix, and the ileocecal valve. The quality of the prep was good. The instrument was then slowly withdrawn as the colon was fully examined. Scope withdrawal time was . COLON FINDINGS: Internal and external hemorrhoids were found. Retroflexed views revealed no abnormalities. The scope was then completely withdrawn from the patient and the procedure terminated. ADVERSE EVENTS: There were no complications. IMPRESSIONS: Internal and external hemorrhoids RECOMMENDATIONS: RECALL: Return in 5-10 year(s) for Colonoscopy. Chandana Hauser MD eSigned: Chandana Hauser MD 09/15/2022 11:02 AM cc: Bryce Royal M.D. CPT CODES: ICD9 CODES: PATIENT NAME: Edison Cummins MR#: [id number]
[2022-09-15 11:27] VITALS: BP 103/71; TEMP 98.1; O2SAT 99
== END 2022-09-15 11:29 | disposition home or self-care (01) ==
LOC: OR 08:44
PROVIDERS: ATTEND Surgery
PROC: 0DJD8ZZ Inspection of Lower Intestinal Tract, Via Natural or Artificial Opening Endoscopic (ICD-10-PCS; principal; 2022-09-15 10:45)
DX: Z12.11 Encounter for screening for malignant neoplasm of colon (principal); K64.4 Residual hemorrhoidal skin tags; K64.8 Other hemorrhoids
CPT/HCPCS: 45378; J2704; J2001; J7040